=== PATIENT | female | born 1940 ===

== ENCOUNTER 2020-09-19 13:57 | Outpatient (REF) | payer MEDICARE, SELFPAY ==
--- NOTE | ~2020-09-19 | MM_ITS ---
EXAMINATION: MM SCREENING DIGITAL BREAST TOMOSYNTHESIS, BILATERAL CLINICAL INFORMATION: Screening. Asymptomatic. The lifetime risk of breast cancer based on the Tyrer-Cuzick Model is 4%. COMPARISON: Mammography: 01/18/2019, 10/10/2017, 08/19/2016 TECHNIQUE: Digital breast tomosynthesis is performed in both the craniocaudal and mediolateral oblique views along with computer-aided detection (CAD). Synthesized 2D images are generated from the tomosynthesis. Additional views are provided: Right cleavage, right MLO, left CC. FINDINGS: There are scattered areas of fibroglandular density (ACR BI-RADS breast composition Category b). There is a fibronodular parenchymal pattern similar to prior studies. There is no interval mass or architectural abnormality or dominant nodule. Again, there are scattered bilateral punctate, coarse, and vascular calcifications, including benign appearing grouped calcifications mid medial and mid outer left breast. The axilla and skin contours are unremarkable. MM/MM tomosynthesis screening BI IMPRESSION: No significant changes from prior studies. ASSESSMENT: BI-RADS 2: Benign RECOMMENDATION: Routine annual mammography screening. This patient's information was entered into a reminder system with a target due date for their next mammogram.
== END 2020-09-19 13:58 | disposition home or self-care (01) ==
LOC: HO.MAMMO 13:57
PROVIDERS: Visit Provider Internal Medicine
DX: Z12.31 Encounter for screening mammogram for malignant neoplasm of breast (principal)
CPT/HCPCS: 77063; 77067

== ENCOUNTER 2022-01-31 06:16 | Outpatient (REF) | payer MEDICARE, SELFPAY | END 2022-01-31 06:17 | disposition home or self-care (01) | LOC: HO.HOSX 06:16 | PROVIDERS: Visit Provider Physician Assistant | DX: Z13.89 Encounter for screening for other disorder (principal) ==

== ENCOUNTER 2022-03-07 07:06 | Outpatient (REF) | payer MEDICARE, SELFPAY ==
--- NOTE | ~2022-03-07 | XR_ITS ---
EXAMINATION: XR SHOULDER, RIGHT CLINICAL INFORMATION: Right shoulder pain. COMPARISON: Right shoulder radiographs dated 04/24/2013. TECHNIQUE: AP, scapular Y, and axillary views of the right shoulder. 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 Subacromial spurring. Mild glenohumeral joint space narrowing with tiny marginal osteophytes. No acute fracture. No concerning lytic or blastic osseous lesion. XR/XR shoulder RT min 2V IMPRESSION: Superior dislocation of the distal clavicle, similar when compared to the radiograph from 2013. Small subacromial spurs. Mild glenohumeral osteophyte arthritis, slightly progressed.
== END 2022-03-07 07:07 | disposition home or self-care (01) ==
LOC: HO.HOSX 07:06
PROVIDERS: Visit Provider Physician Assistant
DX: S43.101A Unspecified dislocation of right acromioclavicular joint, initial encounter (principal); M75.81 Other shoulder lesions, right shoulder
CPT/HCPCS: 20610; 73030; 99202; J1040

== ENCOUNTER → 2022-07-01 14:47 | Outpatient (BNVA) | payer MEDICARE, SELFPAY | PROVIDERS: PCP Internal Medicine; Visit Provider Urology | DX: N81.6 Rectocele (principal) | CPT/HCPCS: 51701; 99202 ==

== ENCOUNTER 2022-10-10 16:15 | Outpatient (REF) | payer OTHER, SELFPAY ==
--- NOTE | ~2022-10-10 | MM_ITS ---
EXAMINATION: MM SCREENING DIGITAL BREAST TOMOSYNTHESIS, BILATERAL CLINICAL INFORMATION: Screening. Asymptomatic. The lifetime risk of breast cancer based on the Tyrer-Cuzick Model is 3%. COMPARISON: Mammography: 09/19/2020, 01/18/2019, 10/10/2017 TECHNIQUE: Digital breast tomosynthesis is performed in both the craniocaudal and mediolateral oblique views along with computer-aided detection (CAD). Synthesized 2D images are generated from the tomosynthesis. Additional bilateral MLO views are provided. FINDINGS: There are scattered areas of fibroglandular density (ACR BI-RADS breast composition Category b). There are no significant masses, abnormal calcifications, or other abnormalities. Parenchymal pattern is similar to prior studies. There is no developing density or architectural abnormality. Scattered bilateral benign grouped coarse and some punctate and vascular calcifications are again noted. The axilla and skin contours are unremarkable. No significant changes. MM/MM tomosynthesis screening BI IMPRESSION: No mammographic evidence of malignancy. ASSESSMENT: BI-RADS 2: Benign RECOMMENDATION: Routine annual mammography screening. This patient's information was entered into a reminder system with a target due date for their next mammogram.
== END 2022-10-10 16:16 | disposition home or self-care (01) ==
LOC: HO.MAMMO 16:15
PROVIDERS: PCP Internal Medicine; Visit Provider Nurse Practitioner Family
DX: Z12.31 Encounter for screening mammogram for malignant neoplasm of breast (principal)
CPT/HCPCS: 77063; 77067

== ENCOUNTER 2022-12-19 16:33 | Outpatient (RCR) | payer OTHER, SELFPAY | END 2023-02-06 07:58 | disposition home or self-care (01) | LOC: HO.PT 16:33 | PROVIDERS: PCP Internal Medicine; Visit Provider Nurse Practitioner Family | DX: M25.511 Pain in right shoulder (principal) ==

== ENCOUNTER 2023-01-29 15:49 | Outpatient (REF) | payer OTHER, SELFPAY | END 2023-01-29 15:50 | disposition home or self-care (01) | LOC: HO.LAB 15:49 | PROVIDERS: PCP Internal Medicine; Visit Provider Urology | DX: N39.0 Urinary tract infection, site not specified (principal); N81.10 Cystocele, unspecified; N81.6 Rectocele | CPT/HCPCS: 87086; 99212 ==

== ENCOUNTER 2023-01-29 15:49 | Outpatient (AMB) | payer OTHER, SELFPAY ==
--- NOTE | 2022-12-30 12:13 | A.OFFVIS_ITS ---
Intake Intake Visit Reasons: 3m/pessary maintenance (no showed last appt) Intake Note: Patient presents today for a follow-up on 3m/pessary maintenance (no showed last appts) Meds- None Allergies to Antibiotic- No Known Allergies Blood Thinner- Aspirin & Furosemide Marketing Intelligence Manager Required: No Accompanied by: Self / Same As Patient Allergies No Known Allergies Allergy (Verified 01/29/23 15:57) Medication List - Last Reconciled 01/29/23 by Marie Pritchard MD aspirin 81 mg PO DAILY 90 days atorvastatin 80 mg PO DAILY calcium carbonate 600 mg PO BID 30 days cholecalciferol (vitamin D3) 25 mcg PO DAILY 30 days cyclobenzaprine 5 mg PO BEDTIME PRN 30 days docusate sodium 100 mg PO DAILY 90 days fluticasone propionate 50 mcg/actuation (Flonase Allergy Relief) 1 spray intranasal DAILY 30 days furosemide 20 mg PO DAILY hydrochlorothiazide 25 mg PO DAILY lansoprazole 30 mg PO DAILY lidocaine 4% 1 patch topical DAILY PRN lisinopril 40 mg PO DAILY loratadine 10 mg PO DAILY multivitamin 1 tab PO DAILY naproxen 500 mg PO BID PRN 30 days nitrofurantoin monohyd/m-cryst 100 mg (Macrobid) 100 mg PO BID sertraline 25 mg PO DAILY sertraline 100 mg PO DAILY Shower Chair As directed HPI HPI Comments History of Present Illness Details Kelly is an 82-year-old Angolan-speaking female who presents to the clinic for pessary maintenance.? 01/29/2023-- The patient is a Belarusian speaking female presented today with her aundreaer, who interpreted for her. She was last seen by me on 12/30/2022. Her daughter complaints that patient had symptoms of urinary burning. She thinks that she has urinary tract infections. Patient was unable to give voided urine. So, i obtained the urine thought catheterized specimen. I removed the pessary. Urine will be sent for culture and i will start her on macrobid 100 mg BID for 7 days, and have her follow up in 4 months. Review of charts: Last visit: 12/30/22-- The patient has a pessary in place that was placed about a year ago at a medical office, [facility]. She was last seen on 07/01/22 for vaginal prolapse. She was recommended to Urogynecology to discuss surgical management options at that time. She was also advised to follow up in 3 months if she wishes to continue with pessary management. 01/29/2023-- Plan: I removed the pessary. Urine will be sent for culture. I will start her on macrobid 100 mg BID for 7 days. Follow up in 4 months. [facility] Medical History Chest congestion Depression Essential hypertension GERD (gastroesophageal reflux disease) Hypovitaminosis D Insomnia Left knee pain Mild recurrent major depression Pure hypercholesterolemia Uterovaginal prolapse Surgical History No pertinent past surgical history Family History Father CVD (cardiovascular disease) Mother CVD (cardiovascular disease) Hypertension Sister Breast cancer Family/Other FH: mental illness Mental health disorder Social History Housing: Apartment Alcohol intake: never Patient Tobacco Use Status: Never used Tobacco e-Cigarette/Vaping Use: Never Used Second Hand Smoke Exposure: No Current occupational status: disabled Current occupation: rt hand Review of Systems Const All systems reviewed & are unremarkable except as noted in HPI and below Reports no additional complaints Eyes Reports no additional complaints ENT Reports no additional complaints Card Denies dyspnea Resp Denies cough and Denies dyspnea GI Reports no additional complaints Reports no additional complaints Musc Reports no additional complaints Skin/Breast Denies rash and Denies unusual bruising Neuro Reports no additional complaints Psych Reports no additional complaints Endo Reports no additional complaints Benny/Lymph Reports no additional complaints Aller/Immun Reports no additional complaints Assessment & Plan Assessment & Plan (1) UTI (urinary tract infection): Code(s): N39.0 - Urinary tract infection, site not specified Plan: I removed the pessary. Urine will be sent for culture. I will start her on macrobid 100 mg BID for 7 days. Follow up in 4 months. (2) Vaginal prolapse: Code(s): N81.10 - Cystocele, unspecified (3) Rectocele: Code(s): N81.6 - Rectocele Orders: Orders Urine Culture 01/29/23 N39.0 - Urinary tract infection, site not specified AMB Bladder/Catheter Procedure 01/29/23 N39.0 - Urinary tract infection, site not specified Medications: New nitrofurantoin monohyd/m-cryst 100 mg (Macrobid) must administer with a meal/food 100 mg PO BID 14 caps 0RF Patient Instructions: The patient had an opportunity to ask questions regarding treatment plan. All questions were answered. Imaging, Laboratory studies and physical exam results were discussed and reviewed in detail. No major barriers to understanding were identified. The patient expressed understanding and agreement with the above treatment plan. The patient is aware they should contact our office by phone for worsening of their current condition or the appearance of new symptoms. Compliance is encouraged with any medications and followup testing that is ordered. It is a privilege to be allowed the opportunity to participate in the urologic care of your patient. If you have any questions or concerns regarding treatment for the above conditions please do not hesitate to contact me. The office telephone contact is [phone]. This note is constructed in part using voice recognition software. While every effort has been made to ensure accuracy forklift truck operator errors may have been included. Yours sincerely, Marie Pritchard MD Quality Reporting (2019) Adult ([facility] 138/08/07/68) Smoking risk assessment performed?: Yes Patient Tobacco Use Status: Never used Tobacco Coding Level of Care Code Est Pt Level 3 (20378) Diagnoses UTI (urinary tract infection) N39.0 Vaginal prolapse N81.10 Rectocele N81.6
== END 2023-01-29 16:15 | disposition home or self-care (01) ==
LOC: HO.HUSH 15:49
PROVIDERS: PCP Internal Medicine; Visit Provider Urology
DX: N39.0 Urinary tract infection, site not specified (principal); N81.10 Cystocele, unspecified; N81.6 Rectocele
CPT/HCPCS: 99213

== ENCOUNTER 2023-03-02 18:56 | Emergency (ER) | payer OTHER, SELFPAY ==
[2023-03-02 19:10] VITALS: BP 140/86; PULSE 73; RESP 20; TEMP 36.5; O2SAT 96; BMI 32.0
--- NOTE | 2023-03-02 19:10 | ED_ITS ---
HPI - General Adult General Chief complaint: Urogenital-Female Stated complaint: removed something ? vaginal bleeding Time Seen by Provider: 03/02/23 21:21 Source: patient and family (Alyssa) Mode of arrival: ambulatory Limitations: language barrier (Bolivian speaking only, spanish interpreter/translator used) History of Present Illness HPI narrative: 82-year-old female who presents emergency department for evaluation of vaginal bleeding, frequency and dysuria. The patient states that her symptoms started 2 or 3 days prior. She denied fever, chills, chest pain, shortness of breath, abdominal pain, nausea or vomiting. The patient was worried about the vaginal bleeding and called her daughter and her daughter then brought her to the emergency department for evaluation. The daughter states the patient was wearing a pessary but at her last visit with her provider. , the patient insisted that the pessary be removed and not be reinserted. I did review the urology note from 12/30/[address] Pritchard. Patient was seen on 01/29/2023 for UTI symptoms of urinary burning, patient's pessary was removed but the patient refused to have it reinserted. Patient was treated with Macrobid 100 mg b.i.d. x7 days with a plan to follow-up in 4 months. According to the notes the patient has a vaginal prolapse and that is the reason for her pessary. Patient's urine culture from 01/29/2023 showed no growth. Related Data Home Medications Medication Instructions Recorded Confirmed sertraline 25 mg tablet 25 mg PO DAILY 05/30/20 01/29/23 sertraline 100 mg tablet 100 mg PO DAILY 03/07/22 01/29/23 Previous Rx's Medication Instructions Recorded Shower Chair #1 ea 02/21/21 cyclobenzaprine 5 mg tablet 5 mg PO BEDTIME PRN muscle spasm 03/07/21 30 days #30 tabs fluticasone propionate 50 1 spray intranasal DAILY 30 days 03/07/21 mcg/actuation nasal #16 grams spray,suspension (Flonase Allergy Relief) lidocaine 4 % topical patch 1 patch topical DAILY PRN pain #30 07/12/22 ea lansoprazole 30 mg capsule,delayed 30 mg PO DAILY #28 caps 09/04/22 release atorvastatin 80 mg tablet 80 mg PO DAILY #28 tabs 10/02/22 hydrochlorothiazide 25 mg tablet 25 mg PO DAILY #28 tabs 10/02/22 lisinopril 40 mg tablet 40 mg PO DAILY #28 tabs 10/02/22 aspirin 81 mg tablet,delayed 81 mg PO DAILY 90 days #90 tabs 10/30/22 release multivitamin 1 tab PO DAILY #28 tabs 10/30/22 cholecalciferol (vitamin D3) 25 25 mcg PO DAILY 30 days #30 tabs 12/25/22 mcg (1,000 unit) tablet furosemide 20 mg tablet 20 mg PO DAILY #28 tabs 01/22/23 loratadine 10 mg tablet 10 mg PO DAILY #90 tabs 01/22/23 nitrofurantoin 100 mg PO BID #14 caps 01/29/23 monohydrate/macrocrystals 100 mg capsule (Macrobid) calcium carbonate 600 mg calcium 600 mg PO BID 30 days #60 tabs 02/26/23 (1,500 mg) tablet docusate sodium 100 mg capsule 100 mg PO DAILY 90 days #90 caps 02/26/23 naproxen 500 mg tablet 500 mg PO BID PRN pain 30 days #60 02/26/23 tabs nitrofurantoin 100 mg PO Q12H 7 days #14 caps 03/02/23 monohydrate/macrocrystals 100 mg capsule (Macrobid) Allergies Allergy/AdvReac Type Severity Reaction Status Date / Time No Known Allergies Allergy Verified 03/02/23 19:10 Review of Systems 2 Review of Systems: Yes all other systems are reviewed and are negative [facility] Past Medical History [facility] Narrative: Social history: She lives alone but has 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 Patient denies tobacco, alcohol and drug use. Medical History Chest congestion Depression Essential hypertension GERD (gastroesophageal reflux disease) Hypovitaminosis D Insomnia Left knee pain Mild recurrent major depression Pure hypercholesterolemia Uterovaginal prolapse Surgical History No pertinent past surgical history Family History Family History Father CVD (cardiovascular disease) Mother CVD (cardiovascular disease) Hypertension Sister Breast cancer Family/Other FH: mental illness Mental health disorder Social History Social History Housing: Apartment Alcohol intake: unknown Patient Tobacco Use Status: Never used Tobacco Smoked in Last 30 Days: No e-Cigarette/Vaping Use: Never Used Second Hand Smoke Exposure: No Use of substances other than those prescribed or required for medical reasons: No Advance Directives: No Advance Directives Information Provided: Yes Current occupational status: disabled Current occupation: rt hand Physical Exam ED Vital Signs: Vital Signs - 24 hr 03/02/23 19:10 03/02/23 20:54 Temperature 97.7 F 98.5 F Pulse Rate 73 68 Respiratory Rate 20 16 Blood Pressure 140/86 H 155/71 H Pulse Oximetry 96 98 Oxygen Delivery Method Room Air Room Air BMI result Body Mass Index 32.0 Vital signs were normal except for slight elevation in blood pressure of 140/86. Exam: General: Awake, alert in no distress Head: Normocephalic, atraumatic EENT: PERRL, Lids normal, sclera normal, conjunctiva normal, nose normal , ears normal, throat without erythema or exudates Neck: Supple, no adenopathy, trachea midline and nontender Lung: breath sounds symmetric, no wheezing, rales or rhonchi Chest: symmetric movement, nontender Heart: regular rate and rhythm, normal S1, S2 no murmurs or rubs Abdomen: soft, non-tender, nondistended, normal bowel sounds Back: no vertebral tenderness, no CVAT Extremities: no deformities, moves all extremities symmetrically Skin: no rashes, no lesion, normal color and warmth Neuro: Awake, alert, oriented, normal speech, cranial nerves intact, moves all extremities symmetrically Psych: Pleasant, cooperative Course Course Course Narrative: RME: 82 yold female presents to the ED For uterine prolapse. Patient had mesh removed 2 weeks ago and starting having symptoms yesterdau. Medications Administered Discontinued Medications Generic Name Dose Route Start Last Admin Trade Name Freq PRN Reason Stop Dose Admin Nitrofurantoin Macrocrystals 100 mg 03/02/23 21:50 03/02/23 22:03 Nitrofurantoin Monohyd/M-Cryst 100 Mg Capsule PO 03/02/23 21:51 100 mg ONCE ONE Administration Medical Decision Making Medical Decision Making [facility] Narrative: 82-year-old female who presents emergency department for evaluation of 2-3 days of urinary frequency, dysuria and vaginal bleeding which occurred this evening. Patient does have a history of vaginal prolapse and usually wears a pessary but this was removed approximately 1 month prior at the patient's request, patient also had urinary symptoms at that time and was treated with Macrobid 100 mg b.i.d. x7 days-culture from the urology office visit was negative and showed no growth. Patient has had no significant systemic symptoms. Vital signs were normal. Abdominal exam revealed no tenderness. Following evaluation was ordered: CBC, CMP, urinalysis 2148: Patient's laboratory evaluation was unremarkable. Patient was not able to give us urinary sample and she refused a straight cath specimen. I will treat the patient empirically for urinary tract infection with Macrobid 100 mg twice a day for 7 days, she was given her 1st dose here in the emergency department. She was advised to follow-up with her urologist to get the pessary reinserted. Differential Diagnosis Differential Diagnoses: The differential diagnosis associated with the presentation includes Differential diagnosis includes was not limited to urinary tract infection, uterine bleeding, cervical bleeding, cervical cancer Admission/Observation Consideration of admission/observation: Escalation of care including admission/observation considered Lab Data MDM Lab Attestation statement: I reviewed the patient's lab results. My interpretation patient's laboratory evaluation is as follows: CBC was normal with a WBC of 7600 H&H of 12.4 and 37.3. Platelet count was normal 269,000. BUN was slightly elevated 20 with normal creatinine at 0.77. Bicarb elevated 31. 03/02/23 21:10 03/02/23 21:10 Labs: Lab Results 03/02/23 Range/Units 21:10 WBC 7.6 (4.8-10.8) X10*3/uL RBC 4.05 L (4.20-5.50) X10*6/uL Hgb 12.4 (12.0-16.0) g/dl Hct 37.3 (37.0-47.0) % MCV 92.1 (80.0-98.0) fL MCH 30.6 (27.0-33.0) pg MCHC 33.2 (31.0-35.0) g/dl RDW 12.2 (11.0-16.0) % Plt Count 269 (160-400) X10*3/uL MPV 8.8 L (9.4-12.3) fL Absolute Nucleated RBC 0.000 (0.0-0.012) X10*3/uL Nucleated RBC % (auto) 0.0 (0.0-0.2) /100WBC Sodium 141 (135-145) mmol/L Potassium 3.8 (3.3-5.1) mmol/L Chloride 102 (96-108) mmol/L Carbon Dioxide 31 H (22-29) mmol/L Anion Gap 12 (12-20) BUN 20 H (9-16) mg/dL Creatinine 0.77 (0.5-1.4) mg/dL Estim Creat Clear Calc 44.4 Estimated GFR > 60 Random Glucose 110 (60-115) mg/dL Calcium 9.5 (8.4-10.2) mg/dL Total Bilirubin 0.4 (0.0-1.0) mg/dL AST 16 (5-31) U/L ALT 11 (0-31) U/L Alkaline Phosphatase 60 (39-117) U/L Total Protein 6.8 (6.5-8.0) g/dL Albumin 3.8 (3.5-5.0) g/dL Discharge Plan Discharge Clinical Impression: Urinary tract infection Patient Disposition: Home, Self-Care Instructions: Urinary Tract Infection in Older Adults (ED) Additional Instructions: Take Macrobid (nitrofurantoin) 100 mg pills, 1 pill twice a day for 7 days Follow-up with your urologist, Dr. Pritchard for reinsertion of the pessary and to follow-up on your symptoms of a urinary tract infection Follow-up with your doctor in 2 days. Please return to the emergency department if your symptoms get worse or if you develop any symptoms that are concerning to you. Prescriptions: New nitrofurantoin monohyd/m-cryst [Macrobid] 100 mg capsule 100 mg PO Q12H 7 Days Qty: 14 0RF Rx Instructions: must administer with a meal/food No Action (DME) Shower Chair Misc See Rx Instructions .Route Qty: 1 0RF Rx Instructions: As directed cyclobenzaprine 5 mg tablet 5 mg PO BEDTIME PRN (Reason: muscle spasm) 30 Days Qty: 30 0RF fluticasone propionate [Flonase Allergy Relief] 50 mcg/actuation spray,suspension 1 spray intranasal DAILY 30 Days Qty: 16 0RF Rx Instructions: administer into each nostril lansoprazole 30 mg capsule,delayed release(DR/EC) 30 mg PO DAILY Qty: 28 6RF lisinopril 40 mg tablet 40 mg PO DAILY Qty: 28 6RF atorvastatin 80 mg tablet 80 mg PO DAILY Qty: 28 6RF hydrochlorothiazide 25 mg tablet 25 mg PO DAILY Qty: 28 6RF aspirin 81 mg tablet,delayed release (DR/EC) 81 mg PO DAILY 90 Days Qty: 90 1RF multivitamin Tablet 1 tab PO DAILY Qty: 28 6RF cholecalciferol (vitamin D3) 25 mcg (1,000 unit) tablet 25 mcg PO DAILY 30 Days Qty: 30 11RF loratadine 10 mg tablet 10 mg PO DAILY Qty: 90 3RF furosemide 20 mg tablet 20 mg PO DAILY Qty: 28 6RF calcium carbonate 600 mg calcium (1,500 mg) tablet 600 mg PO BID 30 Days Qty: 60 11RF docusate sodium 100 mg capsule 100 mg PO DAILY 90 Days Qty: 90 1RF naproxen 500 mg tablet 500 mg PO BID PRN (Reason: pain) 30 Days Qty: 60 0RF sertraline 25 mg tablet 25 mg PO DAILY lidocaine 4 % adhesive patch,medicated 1 patch topical DAILY PRN (Reason: pain) Qty: 30 1RF sertraline 100 mg tablet 100 mg PO DAILY nitrofurantoin monohyd/m-cryst [Macrobid] 100 mg capsule 100 mg PO BID Qty: 14 0RF Rx Instructions: must administer with a meal/food Interventions: ED Discharge Assessment Last Done: 03/02/23 22:06 Discharge Date/Time: 03/02/23 22:18
[2023-03-02 20:54] VITALS: BP 155/71; PULSE 68; RESP 16; TEMP 36.9; O2SAT 98
[2023-03-02 21:15] LABS: Hematocrit 37.3 % (37.0-47.0); Hemoglobin 12.4 g/dl (12.0-16.0); Mean Corpuscular HGB Conc 33.2 g/dl (31.0-35.0); Mean Corpuscular Hemoglobin 30.6 pg (27.0-33.0); Mean Corpuscular Volume 92.1 fL (80.0-98.0); Mean Platelet Volume 8.8 fL (9.4-12.3); Platelet Count 269 X10*3/uL (160-400); Red Blood Count 4.05 X10*6/uL (4.20-5.50); Red Cell Distribution Width 12.2 % (11.0-16.0); White Blood Count 7.6 X10*3/uL (4.8-10.8)
--- NOTE | 2023-03-02 21:19 | PC.NURSE ---
assumed care of pt, pt alert/o x3 . bangladeshi speaking daughter at bedside interpreting, pt has mid abd pain and brown vaginal blood noted as of today. IV placed 20 RAC, labs drawn from site. call lacy in reach, bed at lowest postion
[2023-03-02 21:28] LABS: Alanine Aminotransferase 11 U/L (0-31); Albumin Level 3.8 g/dL (3.5-5.0); Alkaline Phosphatase 60 U/L (39-117); Anion Gap 12 (12-20); Aspartate Amino Transferase 16 U/L (5-31); Bilirubin Total 0.4 mg/dL (0.0-1.0); Blood Urea Nitrogen 20 mg/dL (9-16); Calcium 9.5 mg/dL (8.4-10.2); Carbon Dioxide 31 mmol/L (22-29); Chloride 102 mmol/L (96-108); Creatinine Clr Calc Pharmacy 44.4; Estimated Glomerular Filt Rate > 60; Glucose Random 110 mg/dL (60-115); Potassium 3.8 mmol/L (3.3-5.1); Sodium 141 mmol/L (135-145); Total Protein 6.8 g/dL (6.5-8.0)
[2023-03-02] MEDS: Nitrofurantoin Monohyd/M-Cryst 100 MG CAPSULE PO (22:03)
== END 2023-03-02 22:18 | disposition home or self-care (01) ==
PROVIDERS: Emergency Provider Emergency Medicine Emergency Medical Services
DX: N39.0 Urinary tract infection, site not specified (principal); R35.0 Frequency of micturition; R30.0 Dysuria; Z79.899 Other long term (current) drug therapy
CPT/HCPCS: 36415; 80053; 85027; 99283; 99284

== ENCOUNTER 2023-06-18 15:44 | Outpatient (AMB) | payer OTHER, SELFPAY ==
--- NOTE | 2023-06-18 15:50 | MHC.OFFVIS ---
Intake Intake Visit Reasons: ER follow up/vaginal bleeding Intake Note: Patient presents today for a follow-up on Vaginal Bleeding, patient went to [facility] ER: Meds- None Allergies to Antibiotic- No Known Allergies Blood Thinner- Aspirin & Furosemide Ux Design Manager Required: No Accompanied by: Self / Same As Patient Allergies No Known Allergies Allergy (Verified 03/02/23 19:10) Medication List - Last Reconciled 06/18/23 by Marie Pritchard MD aspirin 81 mg PO DAILY 90 days atorvastatin 80 mg PO DAILY calcium carbonate 600 mg PO BID 30 days cholecalciferol (vitamin D3) 25 mcg PO DAILY 30 days cyclobenzaprine 5 mg PO BEDTIME PRN 30 days docusate sodium 100 mg PO DAILY 90 days fluconazole 150 mg PO DAILY fluticasone propionate 50 mcg/actuation (Flonase Allergy Relief) 1 spray intranasal DAILY 30 days furosemide 20 mg PO DAILY hydrochlorothiazide 25 mg PO DAILY lansoprazole 30 mg PO DAILY lidocaine 4% 1 patch topical DAILY PRN lisinopril 40 mg PO DAILY loratadine 10 mg PO DAILY multivitamin 1 tab PO DAILY naproxen 500 mg PO BID PRN 30 days nitrofurantoin monohyd/m-cryst 100 mg (Macrobid) 100 mg PO Q12H 7 days nitrofurantoin monohyd/m-cryst 100 mg (Macrobid) 100 mg PO BID sertraline 25 mg PO DAILY sertraline 100 mg PO DAILY Shower Chair As directed HPI HPI Comments History of Present Illness Details Kelly is an 82-year-old Czech-speaking female who presents to the clinic for vaginal bleeding. She presents with her daughter today who states the patient went to [facility] ED 2 nights ago and they told her to make an appointment. She c/'s of vaginal itching also. Her daughter states that since she was here last in December 2022, at which time she wanted the pessary removed; she went to [facility] and had another pessary placed because she had truouble urinating due to the vaginal bulge. She states she prefers this office kam came back to be seen. She states the vaginal bleeding is off and on. She also stated the pessary placed by [facility] had fallen out bur her mother was able to replace it. Exam: Pessary removed (ring with support) - no vaginal bleeding noted, white creamy discharge. Pessary fitting - New size 6 ring w/o support placed I have contacted [facility] ED 06/17/23 and received fax'd copy of ED records and have reviewed them. Review of chart: 01/29/2023-- The patient is a Romanian speaking female presented today with her duaghter, who interpreted for her. She was last seen by me on 12/30/2022. Her daughter complaints that patient had symptoms of urinary burning. She thinks that she has urinary tract infections. Patient was unable to give voided urine. So, i obtained the urine thought catheterized specimen. I removed the pessary. Urine will be sent for culture and i will start her on macrobid 100 mg BID for 7 days, and have her follow up in 4 months. Last visit: 12/30/22-- The patient has a pessary in place that was placed about a year ago at a medical office, [facility]. She was last seen on 07/01/22 for vaginal prolapse. She was recommended to Urogynecology to discuss surgical management options at that time. She was also advised to follow up in 3 months if she wishes to continue with pessary anagement. 06/18/23-- UA-- leuk neg, blood neg 06/18/23-- Plan: c/o's vaginal bleeding, pt states she has not had a hysterectomy- DRY CHAIN OFFBEARER referral Size # 6 Ring w/o support pessary inserted. Catheterized urine - Negative Vaginal pruitis, Diflucan 150 mg Follow up in [address] [facility] Medical History Chest congestion Left knee pain Mild recurrent major depression Uterovaginal prolapse Essential hypertension Hypovitaminosis D Insomnia Depression Pure hypercholesterolemia GERD (gastroesophageal reflux disease) Surgical History No pertinent past surgical history Family History Father CVD (cardiovascular disease) Mother CVD (cardiovascular disease) Hypertension Sister Breast cancer Family/Other FH: mental illness Mental health disorder Social History Housing: Apartment Alcohol intake: unknown Patient Tobacco Use Status: Never used Tobacco e-Cigarette/Vaping Use: Never Used Second Hand Smoke Exposure: No Current occupational status: disabled Current occupation: rt hand Review of Systems Const All systems reviewed & are unremarkable except as noted in HPI and below Reports no additional complaints Eyes Reports no additional complaints ENT Reports no additional complaints Card Denies dyspnea Resp Denies cough and Denies dyspnea GI Reports no additional complaints Reports no additional complaints Musc Reports no additional complaints Skin/Breast Denies rash and Denies unusual bruising Neuro Reports no additional complaints Psych Reports no additional complaints Endo Reports no additional complaints Benny/Lymph Reports no additional complaints Aller/Immun Reports no additional complaints Physical Exam Const General: cooperative, healthy appearing and no acute distress Orientation/consciousness: patient oriented x3 HEENT Head: Yes normal to inspection, Yes normocephalic and Yes atraumatic Eyes Conjunctivae: conjunctivae normal Neck Neck: Yes normal visual inspection and Yes trachea midline Chest Chest palpation & inspection: normal inspection of the chest Resp Effort & Inspection: normal respiratory effort Cardio Rate: regular rate GI Inspection: Yes normal to inspection Palpation (GI): Soft to palpation Other: grade 4 rectocele External Female Exam: normal external appearance Speculum Exam - Vagina: vagina atrophic Skin General skin exam: no rashes or lesions noted Neuro General: patient oriented x3 Extrem General: No edema Psych Appearance: grossly normal Office Procedures Bladder/Catheter Procedure Details: Under sterile technique a 14 Greek catheter was passed transurethrally, 90 mL urine drained [id number] Bladder Catheter Procedure code (CPT) selection complete Assessment & Plan Assessment & Plan (1) Vaginal prolapse: Code(s): N81.10 - Cystocele, unspecified (2) Vaginal bleeding: Code(s): N93.9 - Abnormal uterine and vaginal bleeding, unspecified (3) Vaginitis: Code(s): N76.0 - Acute vaginitis (4) Rectocele: Code(s): N81.6 - Rectocele Plan c/o's vaginal bleeding, pt states she has not had a hysterectomy- DRY CHAIN OFFBEARER referral Size # 6 Ring w/o support pessary inserted. Catheterized urine - Negative Vaginal pruitis, Diflucan 150 mg Follow up in 10 weeks pessary eval. Orders: Orders AMB Bladder/Catheter Procedure Today N81.10 - Cystocele, unspecified Referrals MANAGER BUSINESS BANKING Referral N93.9 - Abnormal uterine and vaginal bleeding, unspecified Medications: New fluconazole 150 mg PO DAILY 2 tabs 0RF repeat dose in 2 days Patient Instructions: The patient had an opportunity to ask questions regarding treatment plan. All questions were answered. Laboratory studies and physical exam results were discussed and reviewed in detail. No major barriers to understanding were identified. The patient expressed understanding and agreement with the above treatment plan. The patient is aware they should contact our office by phone for worsening of their current condition or the appearance of new symptoms. Compliance is encouraged with any medications and followup testing that is ordered. It is a privilege to be allowed the opportunity to participate in the urologic care of your patient. If you have any questions or concerns regarding treatment for the above conditions please do not hesitate to contact me. The office telephone contact is [phone]. This note is constructed in part using voice recognition software. While every effort has been made to ensure accuracy senior copywriter errors may have been included. Yours sincerely, Marie Pritchard MD Quality Reporting (2019) Adult ([facility] 138/08/07/68) Smoking risk assessment performed?: Yes Patient Tobacco Use Status: Never used Tobacco Coding Level of Care Code Est Pt Level 4 (40895) Diagnoses Vaginal prolapse N81.10 Vaginal bleeding N93.9 Vaginitis N76.0 Rectocele N81.6 CPT Codes Bladder/Catheter Procedure - CPT: 42121-Hqngoc Bladder Catheter ([id number])
== END 2023-06-18 16:22 | disposition home or self-care (01) ==
PROVIDERS: PCP Internal Medicine; Visit Provider Urology
DX: N81.10 Cystocele, unspecified (principal); N93.9 Abnormal uterine and vaginal bleeding, unspecified; N76.0 Acute vaginitis; N81.6 Rectocele
CPT/HCPCS: 57160; 99214

== ENCOUNTER → 2023-06-18 15:44 | Outpatient (BNVA) | payer OTHER, SELFPAY | PROVIDERS: PCP Internal Medicine; Visit Provider Urology | DX: N81.10 Cystocele, unspecified (principal); N93.9 Abnormal uterine and vaginal bleeding, unspecified; N76.0 Acute vaginitis; N81.6 Rectocele | CPT/HCPCS: 51701; 57160; 99212 ==

== ENCOUNTER 2023-07-07 13:37 | Outpatient (AMB) | payer OTHER, SELFPAY ==
--- NOTE | 2023-07-07 13:58 | A.OFFVIS_ITS ---
Intake Intake Visit Reasons: Having Issues with the Pessary Intake Note: Patient presents today, is having issues with her Pessary: Meds- None Allergies to Antibiotic- No Known Allergies Blood Thinner- Aspirin Research Physician Required: No Accompanied by: Daughter Allergies No Known Allergies Allergy (Verified 07/07/23 13:59) HPI HPI Comments History of Present Illness Details 07/07/23--Kelly is an 82-year-old Spani -speaking female who was last seen on 06/18/23 for vaginal bleeding. She presents with her daughter today with complaints of the pessary falling out again. Certified interpreter present. The pessary was replaced today. Review of chart: 06/18/23-- Kelly is an 82-year-old Spani -speaking female who presents to the clinic for vaginal bleeding. She presents with her daughter today who states the patient went to [facility] ED 2 nights ago and they told her to make an appointment. She c/'s of vaginal itching also. Exam: Pessary removed (ring with support) - no vaginal bleeding noted, white creamy discharge. Pessary fitting - New size 6 ring w/o support placed Plan:c/o's vaginal bleeding, pt states she has not had a hysterectomy- AUTOMATIC MACHINE ATTENDANT referral, Size # 6 Ring w/o support pessary inserted. Catheterized urine - Negative; Vaginal pruitis, Diflucan 150 mg. Follow up in 10 weeks pessary eval. 06/18/23-- UA-- leuk neg, blood neg 01/29/2023-- The patient is a Kiswahili speaking female presented today with her shabana, who interpreted for her. She was last seen by me on 12/30/2022. Her daughter complaints that patient had symptoms of urinary burning. She thinks that she has urinary tract infections. Patient was unable to give voided urine. So, i obtained the urine thought catheterized specimen. I removed the pessary. Urine will be sent for culture and i will start her on macrobid 100 mg BID for 7 days, and have her follow up in 4 months. 12/30/22-- The patient has a pessary in place that was placed about a year ago at a medical office, [facility]. She was last seen on 07/01/22 for vaginal prolapse. She was recommended to Urogynecology to discuss surgical management options at that time. She was also advised to follow up in 3 months if she wishes to continue with pessary management. 07/07/23-- Plan: Follow up in 10 weeks pessary eval. [facility] Medical History Chest congestion Left knee pain Mild recurrent major depression Uterovaginal prolapse Essential hypertension Hypovitaminosis D Insomnia Depression Pure hypercholesterolemia GERD (gastroesophageal reflux disease) Surgical History No pertinent past surgical history Family History Father CVD (cardiovascular disease) Mother CVD (cardiovascular disease) Hypertension Sister Breast cancer Family/Other FH: mental illness Mental health disorder Social History Housing: Apartment Alcohol intake: unknown Patient Tobacco Use Status: Never used Tobacco e-Cigarette/Vaping Use: Never Used Second Hand Smoke Exposure: No Current occupational status: disabled Current occupation: rt hand Review of Systems Const All systems reviewed & are unremarkable except as noted in HPI and below Reports no additional complaints Eyes Reports no additional complaints ENT Reports no additional complaints Card Denies dyspnea Resp Denies cough and Denies dyspnea GI Reports no additional complaints Reports no additional complaints Musc Reports no additional complaints Skin/Breast Denies rash and Denies unusual bruising Neuro Reports no additional complaints Psych Reports no additional complaints Endo Reports no additional complaints Benny/Lymph Reports no additional complaints Aller/Immun Reports no additional complaints Assessment & Plan Assessment & Plan (1) Vaginal prolapse: Code(s): N81.10 - Cystocele, unspecified (2) Rectocele: Code(s): N81.6 - Rectocele Plan Follow up in 10 weeks pessary eval. Quality Reporting (2019) Adult ([facility] 138/08/07/68) Smoking risk assessment performed?: Yes Patient Tobacco Use Status: Never used Tobacco Coding Level of Care Code Est Pt Level 3 (64250) Diagnoses Vaginal prolapse N81.10 Rectocele N81.6
== END 2023-07-07 15:01 | disposition home or self-care (01) ==
PROVIDERS: PCP Internal Medicine; Visit Provider Urology
DX: N81.10 Cystocele, unspecified (principal); N81.6 Rectocele
CPT/HCPCS: 99213

== ENCOUNTER → 2023-07-07 13:37 | Outpatient (BNVA) | payer OTHER, SELFPAY | PROVIDERS: PCP Internal Medicine; Visit Provider Urology | DX: N81.10 Cystocele, unspecified (principal); N81.6 Rectocele | CPT/HCPCS: 99212 ==

== ENCOUNTER 2023-10-08 15:19 | Outpatient (AMB) | payer OTHER, SELFPAY ==
--- NOTE | 2023-10-08 15:21 | A.OFFVIS_ITS ---
Intake Visit Reasons: 10w pessary maintenance Intake Note: Patient presents today, for a 10 week Pessary Maintenance: Meds- None Allergies to Antibiotic- No Known Allergies Blood Thinner- Aspirin Eye Dropper Assembler Required: No Accompanied by: Daughter Allergies No Known Allergies Allergy (Verified 07/07/23 13:59) HPI Comments Details: 10/08/23-- pessary changed, cleaned, replaced. patient complains of vaginal itching. Diflucan 150 mg x 2 doses. catheterized PVR 70 mL. FU in 3 months Review of chart: 07/07/23--Kelly is an 82-year-old Korean-speaking female who was last seen on 06/18/23 for vaginal bleeding. She presents with her daughter today with complaints of the pessary falling out again. Certified filing or registry clerk present. The pessary was replaced today. 06/18/23-- Kelly is an 82-year-old Korean-speaking female who presents to the clinic for vaginal bleeding. She presents with her daughter today who states the patient went to [facility] ED 2 nights ago and they told her to make an appointment. She c/'s of vaginal itching also. Exam: Pessary removed (ring with support) - no vaginal bleeding noted, white creamy discharge. Pessary fitting - New size 6 ring w/o support placed Plan:c/o's vaginal bleeding, pt states she has not had a hysterectomy- EXTRUDING PRESS OPERATOR referral, Size # 6 Ring w/o support pessary inserted. Catheterized urine - Negative; Vaginal pruitis, Diflucan 150 mg. Follow up in 10 weeks pessary eval. 06/18/23-- UA-- leuk neg, blood neg 01/29/2023-- The patient is a Filipino speaking female presented today with her shabana, who interpreted for her. She was last seen by me on 12/30/2022. Her daughter complaints that patient had symptoms of urinary burning. She thinks that she has urinary tract infections. Patient was unable to give voided urine. So, i obtained the urine thought catheterized specimen. I removed the pessary. Urine will be sent for culture and i will start her on macrobid 100 mg BID for 7 days, and have her follow up in 4 months. 12/30/22-- The patient has a pessary in place that was placed about a year ago at a medical office, [facility]. She was last seen on 07/01/22 for vaginal prolapse. She was recommended to Urogynecology to discuss surgical management options at that time. She was also advised to follow up in 3 months if she wishes to continue with pessary management. [facility] Medical History Chest congestion Left knee pain Mild recurrent major depression Uterovaginal prolapse Essential hypertension Hypovitaminosis D Insomnia Depression Pure hypercholesterolemia GERD (gastroesophageal reflux disease) Surgical History No pertinent past surgical history Family History Father CVD (cardiovascular disease) Mother CVD (cardiovascular disease) Hypertension Sister Breast cancer Family/Other FH: mental illness Mental health disorder Social History Housing: Apartment Alcohol intake: unknown Patient Tobacco Use Status: Never used Tobacco e-Cigarette/Vaping Use: Never Used Second Hand Smoke Exposure: No Current occupational status: disabled Current occupation: rt hand Review of Systems Const All systems reviewed & are unremarkable except as noted in HPI and below Reports no additional complaints Eyes Reports no additional complaints ENT Reports no additional complaints Card Reports no additional complaints Resp Reports no additional complaints GI Reports no additional complaints Reports as per HPI Musc Reports no additional complaints Skin/Breast Reports system reviewed and no additional complaints, except as documented Neuro Reports no additional complaints Psych Reports no additional complaints Endo Reports no additional complaints Benny/Lymph Reports no additional complaints Aller/Immun Reports no additional complaints Results AMB Urinalysis, Automated UA Leukoctes 0 Melinda/uL Last Edit by BETTE Perez on 10/08/23 15:43 UA Nitrite Negative Last Edit by BETTE Perez on 10/08/23 15:43 UA Urobilinogen 0.2 mg/dL Last Edit by Naynaa Alexis, RMA on 10/08/23 15:4 3 UA Protein 0 mg/dL Last Edit by Arlenmorales Alexis, RMA on 10/08/23 15:43 UA pH 6.0 Last Edit by Arlenmorales Alexis, RMA on 10/08/23 15:43 UA Blood 0 Jake/uL Last Edit by Nayana Alexis, RMA on 10/08/23 15:43 UA Specific Destrehan 1.015 Last Edit by Nayana Alexis, RMA on 10/08/23 15: 43 UA Ketone Negative Last Edit by Nayana Alexis, RMA on 10/08/23 15:43 UA Bilirubin 0 mg/dL Last Edit by Nayana Alexis, RMA on 10/08/23 15:43 UA Glucose 0 mg/dL Last Edit by Nayana Alexis, RMA on 10/08/23 15:43 Quality Reporting (2019) Adult ([facility] 138/08/07/68) Smoking risk assessment performed?: Yes Patient Tobacco Use Status: Never used Tobacco Results Reviewed Results Reviewed: Laboratory Last Values Urine pH (Auto) 6.0 10/08/23 15:42 Specific [place]re[place] (Auto) 1.015 10/08/23 15:42 Urine Protein (Auto) 0 mg/dL 10/08/23 15:42 Glucose (UA)(Auto) 0 mg/dL 10/08/23 15:42 Urine Ketones (Auto) Negative 10/08/23 15:42 Urine Blood (Auto) 0 Jake/uL 10/08/23 15:42 Urine Nitrite (Auto) Negative 10/08/23 15:42 Urine Bilirubin (Auto) 0 mg/dL 10/08/23 15:42 Urine Urobilinogen (Auto) 0.2 mg/dL 10/08/23 15:42 Leukocyte Esterase (Auto) 0 Melinda/uL 10/08/23 15:42 Assessment & Plan Assessment & Plan (1) Vaginal prolapse: Code(s): N81.10 - Cystocele, unspecified Category: Medical (2) Rectocele: Code(s): N81.6 - Rectocele Category: Medical (3) Vaginitis: Code(s): N76.0 - Acute vaginitis Category: Medical Plan Follow up in 3- 4 months pessary maintenance. difucan 150 mg x 2 doses Orders: Orders AMB Urinalysis Automated 10/08/23 Z13.9 - Encounter for screening, unspecified Medications: New fluconazole 150 mg orally take first dose today repeat dose in 3 days; 2 tabs 0RF Patient Instructions: The patient had an opportunity to ask questions regarding treatment plan. The patient expressed understanding and agreement with the above treatment plan. The patient is aware they should contact our office by phone for worsening of their current condition or the appearance of new symptoms. Compliance is encouraged with any medications and followup testing that is ordered. It is a privilege to be allowed the opportunity to participate in the urologic care of your patient. If you have any questions or concerns regarding treatment for the above conditions please do not hesitate to contact me. The office telephone contact is [phone]. This note is constructed in part using voice recognition software. While every effort has been made to ensure accuracy head usher errors may have been included. Yours sincerely, Marie Pritchard MD Coding Level of Care Code Est Pt Level 3 (08001) Diagnoses Vaginal prolapse N81.10 Rectocele N81.6 Vaginitis N76.0
== END 2023-10-08 15:54 | disposition home or self-care (01) ==
PROVIDERS: PCP Internal Medicine; Visit Provider Urology
DX: N81.10 Cystocele, unspecified (principal); N81.6 Rectocele; N76.0 Acute vaginitis
CPT/HCPCS: 99213

== ENCOUNTER → 2023-10-08 15:19 | Outpatient (BNVA) | payer OTHER, SELFPAY | PROVIDERS: PCP Internal Medicine; Visit Provider Urology | DX: N81.10 Cystocele, unspecified (principal); N81.6 Rectocele; N76.0 Acute vaginitis | CPT/HCPCS: 81003; 99212 ==

== ENCOUNTER → 2024-01-01 16:00 | Outpatient (BNV) | payer OTHER, SELFPAY | PROVIDERS: PCP Internal Medicine; Visit Provider Radiology Diagnostic Radiology | DX: Z12.31 Encounter for screening mammogram for malignant neoplasm of breast (principal) | CPT/HCPCS: 77063; 77067 ==

== ENCOUNTER 2024-01-01 16:09 | Outpatient (REF) | payer OTHER, SELFPAY ==
--- NOTE | ~2024-01-01 | MM_ITS ---
EXAMINATION: MM SCREENING DIGITAL BREAST TOMOSYNTHESIS, BILATERAL CLINICAL INFORMATION: Screening. Asymptomatic. COMPARISON: Mammography: This study is compared with prior exams dating back to 2018. TECHNIQUE: Digital breast tomosynthesis is performed in both the craniocaudal and mediolateral oblique views along with computer-aided detection (CAD). Synthesized 2D images are generated from the tomosynthesis. FINDINGS: There are scattered areas of fibroglandular density (ACR BI-RADS breast composition Category b). There are no significant masses, abnormal calcifications, or other abnormalities. Bilateral benign calcifications are present. MM/MM tomosynthesis screening BI IMPRESSION: No mammographic evidence of malignancy. ASSESSMENT: BI-RADS BI-RADS 2 - Benign Findings RECOMMENDATION: Routine annual mammography screening. 1 year F/U This examination should not preclude the clinical evaluation of a suspicious palpable abnormality. This patient's information was entered into a reminder system with a target due date for their next mammogram.
== END 2024-01-01 16:10 | disposition home or self-care (01) ==
LOC: HO.MAMMO 16:09
PROVIDERS: PCP Internal Medicine; Visit Provider Internal Medicine
DX: Z12.31 Encounter for screening mammogram for malignant neoplasm of breast (principal)
CPT/HCPCS: 77063; 77067

== ENCOUNTER 2024-02-19 12:01 | Emergency (ER) | payer OTHER, SELFPAY ==
--- NOTE | ~2024-02-19 | XR_ITS ---
EXAMINATION: XR HIP, LEFT CLINICAL INFORMATION: Pain status post fall COMPARISON: None available. TECHNIQUE: Two views of the left hip. PA view of the pelvis. FINDINGS: No fracture. Alignment is anatomic. Mild hip joint space narrowing with subchondral sclerosis. Soft tissues are unremarkable. XR/XR hip LT w PEL1V IMPRESSION: Mild degenerative disease of the left hip. Electronically signed by: Jena Camp MD 02/19/2024 02:44 PM EDT
--- NOTE | ~2024-02-19 | CT_ITS ---
EXAMINATION: CT ABDOMEN AND PELVIS WITH CONTRAST CLINICAL INFORMATION: Lump. Question hernia versus hematoma status post fall COMPARISON: None available. TECHNIQUE: Multidetector volumetric images were obtained from the superior aspect of the liver through the pubic symphysis following administration 85 mL of Omnipaque 350 intravenous contrast. Sagittal and coronal reformatted images were obtained on the technologist's workstation. Oral contrast: No This CT examination was performed using dose optimization techniques as appropriate, variously including the following: *Automated exposure control *Adjustment of mA and/or kV according to patient size (this includes techniques or standardized protocols for targeted exams where dose is matched to indication/reason for exam; i.e. extremities or head) *Use of iterative reconstruction technique DLP: 8:30 mGy-cm FINDINGS: LUNG BASES: The visualized lung bases are unremarkable. LIVER, GALLBLADDER, AND BILIARY TREE: The liver is normal in size, shape, and attenuation. No focal hepatic lesion or biliary ductal dilatation is present. Gallbladder is filled with stones which are laminated. No acute inflammatory changes. PANCREAS: Unremarkable. SPLEEN: Unremarkable. ADRENAL GLANDS: Unremarkable. KIDNEYS AND URETERS: Left kidney known. Motion degradation limits assessment of the right kidney. There is cortical thinning and calcification likely representing sequelae of old infection. No hydronephrosis grossly. No perinephric collection. BLADDER: Unremarkable. GASTROINTESTINAL TRACT: Severe diverticulosis especially distal colon. No acute inflammatory changes. Moderate amount stool retention. No small bowel pathology. Moderate-sized axial type hiatus hernia. Pessary in place. No free fluid. ABDOMINAL WALL: No significant hernia is appreciated. LYMPH NODES: Normal. VASCULAR: Unremarkable. PELVIC VISCERA: Unremarkable. OSSEOUS STRUCTURES: No hip fracture. There is a large ovoid lesion within this extends fat lateral to the left hip measuring up to 10.6 cm. It measures -15 Hounsfield units indicating an element of fat necrosis. No additional findings. CT/CT abdomen pelvis w IV con IMPRESSION: 1. No evidence for any inguinal hernia. 2. Large fat-containing lesion left hip as above. 3. Cholelithiasis without acute inflammatory changes. 4. Chronic findings as above. Fleischner guidelines were followed. Electronically signed by: Driss Sweet MD 02/19/2024 06:23 PM EDT
[2024-02-19 12:21] VITALS: BP 172/58; PULSE 80; RESP 20; TEMP 36; O2SAT 98; BMI 28.9
--- NOTE | 2024-02-19 12:24 | ED_ITS ---
HPI - Extremity Problem General Chief complaint: Fall Stated complaint: fall-l hip bump Time Seen by Provider: 02/19/24 13:48 Source: patient Mode of arrival: ambulatory Limitations: no limitations History of Present Illness ED Provider: Nishi French HPI Narrative: 83-year-old female presents with left-sided hip pain and lump to the left hip status post fall 2 weeks ago. Patient reports she fell while ambulating, mechanical fall fell onto her left side, she had a bruise to her left hip for about a week or so, the bruises gone away however she now has a large lump on the lateral aspect of her left hip. When she fell there was no head strike or loss of consciousness. She is not on blood thinners. She reports the lump does not hurt however has grown in size. She denies weakness, fevers, chills, chest pain, shortness of breath, nausea, vomiting, numbness, tingling, difficulties with ambulation. She ambulates with a cane at baseline and has been using this cane like usual. Related Data Home Medications ?Medication ?Instructions ?Recorded ?Confirmed sertraline 25 mg tablet 25 mg PO DAILY 05/30/20 06/18/23 sertraline 100 mg tablet 100 mg PO DAILY 03/07/22 06/18/23 Previous Rx's ?Medication ?Instructions ?Recorded Shower Chair #1 ea 02/21/21 cyclobenzaprine 5 mg tablet 5 mg PO BEDTIME PRN muscle spasm 03/07/21 30 days #30 tabs fluticasone propionate 50 1 spray intranasal DAILY 30 days 03/07/21 mcg/actuation nasal #16 grams spray,suspension (Flonase Allergy Relief) lidocaine 4 % topical patch 1 patch topical DAILY PRN pain #30 07/12/22 ea cholecalciferol (vitamin D3) 25 25 mcg PO DAILY 30 days #30 tabs 12/25/22 mcg (1,000 unit) tablet nitrofurantoin 100 mg PO BID #14 caps 01/29/23 monohydrate/macrocrystals 100 mg capsule (Macrobid) calcium carbonate 600 mg PO BID 30 days #60 tabs 02/26/23 nitrofurantoin 100 mg PO Q12H 7 days #14 caps 03/02/23 monohydrate/macrocrystals 100 mg capsule (Macrobid) fluconazole 150 mg tablet 150 mg PO DAILY repeat dose in 2 06/18/23 days #2 tabs fluconazole 150 mg tablet 150 mg PO .COMPLEX #2 tabs 10/08/23 atorvastatin 80 mg tablet 80 mg PO DAILY #28 tabs 11/26/23 hydrochlorothiazide 25 mg tablet 25 mg PO DAILY #28 tabs 11/26/23 lisinopril 40 mg tablet 40 mg PO DAILY #28 tabs 11/26/23 aspirin 81 mg tablet,delayed 81 mg PO DAILY 90 days #90 tabs 12/24/23 release loratadine 10 mg tablet 10 mg PO DAILY #90 tabs 12/24/23 docusate sodium 100 mg capsule 100 mg PO DAILY 90 days #90 caps 01/22/24 furosemide 20 mg tablet 20 mg PO DAILY #28 tabs 02/18/24 lansoprazole 30 mg capsule,delayed 30 mg PO DAILY #28 caps 02/18/24 release multivitamin 1 tab PO DAILY #28 tabs 02/18/24 naproxen 500 mg tablet 500 mg PO BID PRN pain 30 days #60 02/18/24 tabs Allergies Allergy/AdvReac Type Severity Reaction Status Date / Time No Known Allergies Allergy Verified 02/19/24 12:24 Review of Systems 2 Review of Systems: Yes all other systems are reviewed and are negative PMFSH Past Medical History Attestation statement: The following information was validated with the patient. Source: old records reviewed and nursing notes reviewed Medical History Chest congestion Left knee pain Mild recurrent major depression Uterovaginal prolapse Essential hypertension Hypovitaminosis D Insomnia Depression Pure hypercholesterolemia GERD (gastroesophageal reflux disease) Surgical History No pertinent past surgical history Family History Family History Father CVD (cardiovascular disease) Mother CVD (cardiovascular disease) Hypertension Sister Breast cancer Family/Other FH: mental illness Mental health disorder Social History Social History Housing: Apartment Alcohol intake: unknown Patient Tobacco Use Status: Never used Tobacco e-Cigarette/Vaping Use: Never Used Second Hand Smoke Exposure: No Advance Directives: No Advance Directives Information Provided: Yes Do you have a plan to hurt others: No Plan Current occupational status: disabled Current occupation: rt hand Physical Exam 2 Vital Signs: Vital Signs: Last Vital Signs Temp 96.8 F 02/19/24 12:21 Pulse 80 02/19/24 12:21 Resp 20 02/19/24 12:21 BP 172/58 H 02/19/24 12:21 Pulse Ox 98 02/19/24 12:21 O2 Del Method Room Air 02/19/24 12:21 BMI result Body Mass Index 28.9 vss Appearance: Alert.? Oriented X3.? No acute distress.? Head: Normocephalic, atraumatic, no step-offs or deformities Eyes: Pupils equal, round and reactive to light.? Neck: Normal inspection.? Neck supple.? CVS: Normal heart rate and rhythm.? Pulses normal.? Respiratory: No respiratory distress.? Breath sounds normal.? Abdomen: Soft and nontender.? Skin: Skin warm and dry.? Normal skin color.? Normal skin turgor.? Extremities: No lower extremity edema.? No calf ttp. 5/5 strength to bilateral upper and lower extremities + discomfort with palpation of left lateral hip, with overlying large lump, mobile, soft Neuro: Oriented X 3.? No motor deficit.? No sensory deficit. CN 2-12 intact Course Course Course Narrative: This is a Rapid Medical Examination (RME) performed by Ian Patterson PA-C in triage. Full HPI, ROS, assessment and treatment plan per primary provider in the Main ED. 83 yo Tunisian speaking female presenting for evaluation of left sided hip pain and swelling after a fall 2 weeks ago. Was bruised initially and now improved but a large bump remains. she is not on anticoagulation. able to ambulate with cane. large palpable, mobile soft tissue mass on the left hip. Plan: Xray hip/pelvis and check H/H Reevaluation(s) Reevaluation #1: CBC no acute findings needing intervention she has a baseline normocytic anemia. Chemistry no acute findings needing intervention. Slightly elevated BUN and creatinine at baseline will encourage p.o. hydration. X-ray of hips still pending. Time: 13:57 Reevaluation #2: X-ray of the hip mild degenerative disease of left hip. CT abdomen pelvis ordered and pending. Time: 16:17 Reevaluation #3: Patient does not want to wait for imaging states it is taking too long. Would like a call if results are abnormal then she will return. Explained she would be leaving against medical advice as there could potentially be something wrong on scan. Patient and daughter verbalized understanding of this and will be discharged home at this time against medical advice Time: 16:59 Medications Administered Discontinued Medications Generic Name Dose Route Start Last Admin Trade Name Aylin PRN Reason Stop Dose Admin Iohexol 85 ml 02/19/24 15:43 02/19/24 15:44 Iohexol 350 Mg/Ml 75 Ml Infus..Btl IV 02/19/24 15:44 85 ml ONCE ONE Administration Medical Decision Making Medical Decision Making [facility] Narrative: 1357 83-year-old female presents to the emergency department complaints of left sided hip pain status post fall 2 weeks ago. Physical exam tenderness to palpation to lateral aspect of left hip. Patient ambulatory moving with steady gait normal coordination. History and physical exam concerning for contusion versus lipoma versus bursitis. Unlikely large hematoma or hemorrhage. Will rule out fracture dislocation. No signs of neurovascular compromise or acute threat to limb. Plan imaging, basic labs. Differential Diagnosis Differential Diagnoses: The differential diagnosis associated with the presentation includes History and physical exam concerning for contusion versus lipoma versus bursitis. Unlikely large hematoma or hemorrhage. Will rule out fracture dislocation. No signs of neurovascular compromise or acute threat to limb. Admission/Observation Consideration of admission/observation: Escalation of care including admission/observation considered unlikely Lab Data [facility] Lab Attestation statement: I reviewed the patient's lab results. 02/19/24 12:43 02/19/24 12:43 Labs: Lab Results 02/19/24 Range/Units 12:43 WBC 5.0 (4.8-10.8) X10*3/uL RBC 3.83 L (4.20-5.50) X10*6/uL Hgb 11.9 L (12.0-16.0) g/dl Hct 36.0 L (37.0-47.0) % MCV 94.0 (80.0-98.0) fL MCH 31.1 (27.0-33.0) pg MCHC 33.1 (31.0-35.0) g/dl RDW 12.2 (11.0-16.0) % Plt Count 261 (160-400) X10*3/uL MPV 9.6 (9.4-12.3) fL Immature Gran % (Auto) 0.2 (0.0-0.4) % Neut % (Auto) 56.4 (45-73) % Lymph % (Auto) 32.2 (20-40) % [place] % (Auto) 7.0 (2-11) % Eos % (Auto) 3.0 (0-4) % Baso % (Auto) 1.2 (0-2) % Lymph # (Auto) 1.6 (1.2-4.9) X10*3/uL [place] # (Auto) 0.4 (0.1-1.2) X10*3/uL Eos # (Auto) 0.2 (0.0-0.4) X10*3/uL Baso # (Auto) 0.1 (0.0-0.2) X10*3/uL Abs Immat Gran (auto) 0.01 (0.00-0.03) X10*3/uL Absolute Neuts (auto) 2.8 (2.0-8.3) x10*3/uL Absolute Nucleated RBC 0.000 (0.0-0.012) X10*3/uL Nucleated RBC % (auto) 0.0 (0.0-0.2) /100WBC Sodium 140 (135-145) mmol/L Potassium 4.0 (3.3-5.1) mmol/L Chloride 105 (96-108) mmol/L Carbon Dioxide 26 (22-29) mmol/L Anion Gap 13 (12-20) BUN 21 H (9-16) mg/dL Creatinine 0.94 (0.5-1.4) mg/dL Estim Creat Clear Calc 40.1 Estimated GFR 57 Random Glucose 99 (60-115) mg/dL Calcium 9.1 (8.4-10.2) mg/dL Independent Interpretation I performed an independent interpretation of an: Plain X-Ray Radiology Impression Discussion of test interpretation with radiology: I have reviewed the radiologist's reading. External Record Review External record reviewed: Office record, Outpatient record, Prior outpatient labs and Prior outpatient radiology Discharge Plan Discharge Clinical Impression: Hip pain, left, Left against medical advice Patient Disposition: Home, Self-Care Instructions: Arthralgia (ED), Heat Pack Application (ED), Hip Pain (ED) Additional Instructions: Take your medications as prescribed. If you were prescribed antibiotics today, it is important that you take your medication to their entirety, do not skip any doses, do not finish them early. Follow-up with your primary care provider this week. Return to the emergency department with new or worsening symptoms. Such as fevers, chills, chest pain, shortness of breath, nausea, vomiting, dizziness, headache, vision changes, lethargy In case of emergency call 911 Patient decided to leave against medical advice. I took the time to go over risks of leaving against medical advice including . Patient verbalizes understanding of this. Advised them to come back if they change their mind. Prescriptions: No Action (DME) Shower Chair Misc See Rx Instructions .Route Qty: 1 0RF Rx Instructions: As directed cyclobenzaprine 5 mg tablet 5 mg PO BEDTIME PRN (Reason: muscle spasm) 30 Days Qty: 30 0RF fluticasone propionate [Flonase Allergy Relief] 50 mcg/actuation spray,suspension 1 spray intranasal DAILY 30 Days Qty: 16 0RF Rx Instructions: administer into each nostril cholecalciferol (vitamin D3) 25 mcg (1,000 unit) tablet 25 mcg PO DAILY 30 Days Qty: 30 11RF calcium carbonate 600 mg calcium (1,500 mg) tablet 600 mg PO BID 30 Days Qty: 60 11RF lisinopril 40 mg tablet 40 mg PO DAILY Qty: 28 11RF atorvastatin 80 mg tablet 80 mg PO DAILY Qty: 28 11RF hydrochlorothiazide 25 mg tablet 25 mg PO DAILY Qty: 28 11RF loratadine 10 mg tablet 10 mg PO DAILY Qty: 90 0RF aspirin 81 mg tablet,delayed release (DR/EC) 81 mg PO DAILY 90 Days Qty: 90 0RF docusate sodium 100 mg capsule 100 mg PO DAILY 90 Days Qty: 90 0RF furosemide 20 mg tablet 20 mg PO DAILY Qty: 28 0RF multivitamin Tablet 1 tab PO DAILY Qty: 28 0RF naproxen 500 mg tablet 500 mg PO BID PRN (Reason: pain) 30 Days Qty: 60 0RF lansoprazole 30 mg capsule,delayed release(DR/EC) 30 mg PO DAILY Qty: 28 0RF nitrofurantoin monohyd/m-cryst [Macrobid] 100 mg capsule 100 mg PO Q12H 7 Days Qty: 14 0RF Rx Instructions: must administer with a meal/food sertraline 25 mg tablet 25 mg PO DAILY lidocaine 4 % adhesive patch,medicated 1 patch topical DAILY PRN (Reason: pain) Qty: 30 1RF sertraline 100 mg tablet 100 mg PO DAILY fluconazole 150 mg tablet 150 mg PO DAILY Qty: 2 0RF fluconazole 150 mg tablet 150 mg PO .COMPLEX Qty: 2 0RF Rx Instructions: 150 mg orally take first dose today repeat dose in 3 days; nitrofurantoin monohyd/m-cryst [Macrobid] 100 mg capsule 100 mg PO BID Qty: 14 0RF Rx Instructions: must administer with a meal/food Referrals: Antoinette Ku MD [Primary Care Provider] - 2 days Stand Alone Forms: Against Medical Advice Print Language: Tunisian
[2024-02-19 12:53] LABS: MANUAL DIFF FLAG NO
[2024-02-19 12:54] LABS: Basophils Absolute Auto 0.1 X10*3/uL (0.0-0.2); Basophils Percent Auto 1.2 % (0-2); Eosinophils Absolute Auto 0.2 X10*3/uL (0.0-0.4); Hemoglobin 11.9 g/dl (12.0-16.0); Imm Gran Abs Auto 0.01 X10*3/uL (0.00-0.03); Imm Gran Pct Auto 0.2 % (0.0-0.4); Lymphocytes Absolute Auto 1.6 X10*3/uL (1.2-4.9); Lymphocytes Percent Auto 32.2 % (20-40); Mean Corpuscular HGB Conc 33.1 g/dl (31.0-35.0); Mean Corpuscular Hemoglobin 31.1 pg (27.0-33.0); Mean Platelet Volume 9.6 fL (9.4-12.3); Monocytes Absolute Auto 0.4 X10*3/uL (0.1-1.2); Neutrophils Absolute Auto 2.8 x10*3/uL (2.0-8.3); Neutrophils Percent Auto 56.4 % (45-73); Platelet Count 261 X10*3/uL (160-400); Red Blood Count 3.83 X10*6/uL (4.20-5.50); Red Cell Distribution Width 12.2 % (11.0-16.0)
[2024-02-19 13:07] LABS: Anion Gap 13 (12-20); Blood Urea Nitrogen 21 mg/dL (9-16); Calcium 9.1 mg/dL (8.4-10.2); Carbon Dioxide 26 mmol/L (22-29); Chloride 105 mmol/L (96-108); Creatinine Clr Calc Pharmacy 40.1; Estimated Glomerular Filt Rate 57; Glucose Random 99 mg/dL (60-115); Sodium 140 mmol/L (135-145)
[2024-02-19] MEDS: iohexoL 350 MG/ML 75 ML INFUS..BTL 85 ML IV (15:44)
--- NOTE | 2024-02-19 17:08 | PC.NURSE ---
Pt requesting to leave AMA to provider. Pt left without paperwork
[2024-02-19 17:09] VITALS: BP 172/58; PULSE 80; RESP 20; TEMP 36; O2SAT 98
== END 2024-02-19 17:09 | disposition home or self-care (01) ==
PROVIDERS: Physician Assistant; Emergency Provider Emergency Medicine; PCP Internal Medicine
DX: M25.552 Pain in left hip (principal); Z53.29 Procedure and treatment not carried out because of patient's decision for other reasons
CPT/HCPCS: 36415; 73502; 74177; 80048; 85025; 99283; 99284; Q9967

== ENCOUNTER 2024-03-10 15:47 | Outpatient (AMB) | payer OTHER, SELFPAY ==
--- NOTE | 2024-03-10 16:02 | A.OFFVIS_ITS ---
Intake Visit Reasons: 3m pessary maintenance Intake Note: Patient presents today, for Pessary Maintenance: Meds- None Allergies to Antibiotic- No Known Allergies Blood Thinner- Aspirin Materials Handling Coordinator Required: Yes Accompanied by: Daughter Allergies No Known Allergies Allergy (Verified 03/10/24 16:05) HPI Comments Details: 03/10/24--Kelly is an 83-year-old Nepalese-speaking female who was last seen on 06/18/23 for vaginal bleeding. She presents with her daughter today with complaints of the pessary falling out again. Certified electrostatic powder coating technician present. The pessary replaced today. Review of chart: 10/08/23-- pessary changed, cleaned, replaced. patient complains of vaginal itching. Diflucan 150 mg x 2 doses. catheterized PVR 70 mL. FU in 3 months 07/07/23--Kelly is an 82-year-old Nepalese-speaking female who was last seen on 06/18/23 for vaginal bleeding. She presents with her daughter today with complaints of the pessary falling out again. Certified electrostatic powder coating technician present. The pessary was replaced today. 06/18/23-- Kelly is an 82-year-old Nepalese-speaking female who presents to the clinic for vaginal bleeding. She presents with her daughter today who states the patient went to [facility] ED 2 nights ago and they told her to make an appointment. She c/'s of vaginal itching also. Exam: Pessary removed (ring with support) - no vaginal bleeding noted, white creamy discharge. Pessary fitting - New size 6 ring w/o support placed Plan:c/o's vaginal bleeding, pt states she has not had a hysterectomy- SHREDDER TENDER PEAT refer ral, Size # 6 Ring w/o support pessary inserted. Catheterized urine - Negative; Vaginal pruitis, Diflucan 150 mg. Follow up in 10 weeks pessary eval. 06/18/23-- UA-- leuk neg, blood neg 01/29/2023-- The patient is a Luxembourgish speaking female presented today with her duaghter, who interpreted for her. She was last seen by me on 12/30/2022. Her daughter complaints that patient had symptoms of urinary burning. She thinks that she has urinary tract infections. Patient was unable to give voided urine. So, i obtained the urine thought catheterized specimen. I removed the pessary. Urine will be sent for culture and i will start her on macrobid 100 mg BID for 7 days, and have her follow up in 4 months. 12/30/22-- The patient has a pessary in place that was placed about a year ago at a medical office, [facility]. She was last seen on 07/01/22 for vaginal prolapse. She was recommended to Urogynecology to discuss surgical management options at that time. She was also advised to follow up in 3 months if she wishes to continue with pessary management. [facility] Medical History Chest congestion Left knee pain Mild recurrent major depression Uterovaginal prolapse Essential hypertension Hypovitaminosis D Insomnia Depression Pure hypercholesterolemia GERD (gastroesophageal reflux disease) Surgical History No pertinent past surgical history Family History Father CVD (cardiovascular disease) Mother CVD (cardiovascular disease) Hypertension Sister Breast cancer Family/Other FH: mental illness Mental health disorder Social History Housing: Apartment Alcohol intake: unknown Patient Tobacco Use Status: Never used Tobacco e-Cigarette/Vaping Use: Never Used Second Hand Smoke Exposure: No Current occupational status: disabled Current occupation: rt hand Review of Systems Const All systems reviewed & are unremarkable except as noted in HPI and below Reports no additional complaints Eyes Reports no additional complaints ENT Reports no additional complaints Card Reports no additional complaints Resp Reports no additional complaints GI Reports no additional complaints Reports as per HPI Musc Reports no additional complaints Skin/Breast Reports system reviewed and no additional complaints, except as documented Neuro Reports no additional complaints Psych Reports no additional complaints Endo Reports no additional complaints Benny/Lymph Reports no additional complaints Aller/Immun Reports no additional complaints Quality Reporting (2019) Adult ([facility] 138//) Smoking risk assessment performed?: Yes Patient Tobacco Use Status: Never used Tobacco Assessment & Plan Assessment & Plan (1) Vaginal prolapse: Code(s): N81.10 - Cystocele, unspecified Category: Medical (2) Rectocele: Code(s): N81.6 - Rectocele Category: Medical (3) Vaginitis: Code(s): N76.0 - Acute vaginitis Category: Medical Plan Follow up in 4 months pessary maintenance. Patient Instructions: The patient had an opportunity to ask questions regarding treatment plan. The patient expressed understanding and agreement with the above treatment plan. The patient is aware they should contact our office by phone for worsening of their current condition or the appearance of new symptoms. Compliance is encouraged with any medications and followup testing that is ordered. It is a privilege to be allowed the opportunity to participate in the urologic care of your patient. If you have any questions or concerns regarding treatment for the above conditions please do not hesitate to contact me. The office telephone contact is [phone]. This note is constructed in part using voice recognition software. While every effort has been made to ensure accuracy adjusto writer operator errors may have been included. Yours sincerely, Marie Pritchard MD Coding Level of Care Code Est Pt Level 3 (16561) Diagnoses Vaginal prolapse N81.10 Rectocele N81.6 Vaginitis N76.0
== END 2024-03-10 16:28 | disposition home or self-care (01) ==
LOC: HO.HUSH 15:47
PROVIDERS: PCP Internal Medicine; Visit Provider Urology
DX: N81.10 Cystocele, unspecified (principal); N81.6 Rectocele; N76.0 Acute vaginitis
CPT/HCPCS: 99213

== ENCOUNTER → 2024-03-10 15:47 | Outpatient (BNVA) | payer OTHER, SELFPAY | PROVIDERS: PCP Internal Medicine; Visit Provider Urology | DX: N81.10 Cystocele, unspecified (principal); Z46.6 Encounter for fitting and adjustment of urinary device | CPT/HCPCS: 99212 ==

== ENCOUNTER 2024-04-14 13:40 | Outpatient (AMB) | payer OTHER, SELFPAY ==
--- NOTE | 2024-04-14 12:45 | MHC.OFFVIS ---
Intake Visit Reasons: Pessary maintenance Intake Note: Patient is present for PESSARY MAINTENANCE Urology Medication:FLUCONAZOLE,FFUROSEMIDE Antibiotic Allergy:NONE Blood Thinner:ASPIRIN Payroll Specialist Required: No Allergies No Known Allergies Allergy (Verified 04/14/24 13:47) HPI Comments Details: 04/14/24--Kelly is an 83-year-old Citizen Of [place]-speaking female who is here with her daughter, she states the new pessary fell out also. She states her mother has constipation and she knows that is one of the issues. Recommended OTC Miralax. She states the vaginal bulge is worse and her mother is having trouble urinating. Pt states she would like surgical management. Vaginal exam-- complete uterovaginal prolapse white discharge noted. Gelhorn size 6 placed vaginall. Will prescribe diflucan. Review of chart: 03/10/24--Kelly is an 83-year-old Citizen Of [place]-speaking female who was seen on 06/18/23 for vaginal bleeding. She presents with her daughter today with complaints of the pessary falling out again. Certified bottom liquor attendant present. The pessary replaced today. 10/08/23-- pessary changed, cleaned, replaced. patient complains of vaginal itching. Diflucan 150 mg x 2 doses. catheterized PVR 70 mL. FU in 3 months 07/07/23--Kelly is an 82-year-old Citizen Of [place]-speaking female who was last seen on 06/18/23 for vaginal bleeding. She presents with her daughter today with complaints of the pessary falling out again. Certified bottom liquor attendant present. The pessary was replaced today. 06/18/23-- Kelly is an 82-year-old Citizen Of [place]-speaking female who presents to the clinic for vaginal bleeding. She presents with her daughter today who states the patient went to [facility] ED 2 nights ago and they told her to make an appointment. She c/'s of vaginal itching also. Exam: Pessary removed (ring with support) - no vaginal bleeding noted, white creamy discharge. Pessary fitting - New size 6 ring w/o support placed Plan:c/o's vaginal bleeding, pt states she has not had a hysterectomy- SALES COORDINATOR referral, Size # 6 Ring w/o support pessary inserted. Catheterized urine - Negative; Vaginal pruitis, Diflucan 150 mg. Follow up in 10 weeks pessary eval. 06/18/23-- UA-- leuk neg, blood neg 01/29/2023-- The patient is a [place] speaking female presented today with her duaghter, who interpreted for her. She was last seen by me on 12/30/2022. Her daughter complaints that patient had symptoms of urinary burning. She thinks that she has urinary tract infections. Patient was unable to give voided urine. So, i obtained the urine thought catheterized specimen. I removed the pessary. Urine will be sent for culture and i will start her on macrobid 100 mg BID for 7 days, and have her follow up in 4 months. 12/30/22-- The patient has a pessary in place that was placed about a year ago at a medical office, [facility]. She was last seen on 07/01/22 for vaginal prolapse. She was recommended to Urogynecology to discuss surgical management options at that time. She was also advised to follow up in 3 months if she wishes to continue with pessary management. [facility] Medical History Chest congestion Left knee pain Mild recurrent major depression Uterovaginal prolapse Essential hypertension Hypovitaminosis D Insomnia Depression Pure hypercholesterolemia GERD (gastroesophageal reflux disease) Surgical History No pertinent past surgical history Family History Father CVD (cardiovascular disease) Mother CVD (cardiovascular disease) Hypertension Sister Breast cancer Family/Other FH: mental illness Mental health disorder Social History Housing: Apartment Alcohol intake: unknown Patient Tobacco Use Status: Never used Tobacco e-Cigarette/Vaping Use: Never Used Second Hand Smoke Exposure: No Current occupational status: disabled Current occupation: rt hand Review of Systems Const All systems reviewed & are unremarkable except as noted in HPI and below Reports no additional complaints Eyes Reports no additional complaints ENT Reports no additional complaints Card Reports no additional complaints Resp Reports no additional complaints GI Reports no additional complaints Reports as per HPI Musc Reports no additional complaints Skin/Breast Reports system reviewed and no additional complaints, except as documented Neuro Reports no additional complaints Psych Reports no additional complaints Endo Reports no additional complaints Benny/Lymph Reports no additional complaints Aller/Immun Reports no additional complaints Office Procedures Pessary Device Insert Details: Gelhorn size 6 placed vaginally [id number] device insert Results AMB Urinalysis, Automated UA Leukoctes 0 Melinda/uL Last Edit by VISHAL Garrett on 04/14/24 14:12 UA Nitrite Negative Last Edit by VISHAL Garrett on 04/14/24 14:12 UA Urobilinogen 0.2 mg/dL Last Edit by Michael Chand CCM on 04/14/24 14:12 UA Protein 0 mg/dL Last Edit by VISHAL Garrett on 04/14/24 14:12 UA pH 6.0 Last Edit by Michael Chand CCM on 04/14/24 14:12 UA Blood 80 Jake/uL Last Edit by VISHAL Garrett on 04/14/24 14:12 UA Specific [place] 1.015 Last Edit by Michael Chand CCM on 04/14/24 14:12 UA Ketone Negative Last Edit by VISHAL Garrett on 04/14/24 14:12 UA Bilirubin 0 mg/dL Last Edit by VISHAL Garrett on 04/14/24 14:12 UA Glucose 0 mg/dL Last Edit by VISHAL Garrett on 04/14/24 14:12 Quality Reporting (2019) Adult ([facility] 138/08/07/68) Smoking risk assessment performed?: Yes Patient Tobacco Use Status: Never used Tobacco Results Reviewed Results Reviewed: Laboratory Last Values Urine pH (Auto) 6.0 04/14/24 14:12 Specific [place] (Auto) 1.015 04/14/24 14:12 Urine Protein (Auto) 0 mg/dL 04/14/24 14:12 Glucose (UA)(Auto) 0 mg/dL 04/14/24 14:12 Urine Ketones (Auto) Negative 04/14/24 14:12 Urine Blood (Auto) 80 Jake/uL 04/14/24 14:12 Urine Nitrite (Auto) Negative 04/14/24 14:12 Urine Bilirubin (Auto) 0 mg/dL 04/14/24 14:12 Urine Urobilinogen (Auto) 0.2 mg/dL 04/14/24 14:12 Leukocyte Esterase (Auto) 0 Melinda/uL 04/14/24 14:12 Assessment & Plan Assessment & Plan (1) Vaginal prolapse: Code(s): N81.10 - Cystocele, unspecified Category: Medical (2) Rectocele: Code(s): N81.6 - Rectocele Category: Medical (3) Vaginitis: Code(s): N76.0 - Acute vaginitis Category: Medical (4) Complete uterovaginal prolapse: Code(s): N81.3 - Complete uterovaginal prolapse Category: Medical (5) Constipation: Code(s): K59.00 - Constipation, unspecified Category: Medical Plan Follow up in 4-5 weeks to re-eval referral to urogyn Orders: Orders AMB Intravaginal Support Device Insertion Today N81.3 - Complete uterovaginal prolapse AMB Urinalysis Automated Today Z13.9 - Encounter for screening, unspecified Referrals Urogynecology Referral N81.3 - Complete uterovaginal prolapse Medications: New fluconazole 150 mg orally take 1st dose today repeat in 3 days; 2 tabs 0RF Coding Level of Care Code Est Pt Level 4 (85941) Diagnoses Vaginal prolapse N81.10 Rectocele N81.6 Vaginitis N76.0 Complete uterovaginal prolapse N81.3 Constipation K59.00 CPT Codes Pessary Device Insert - CPT: 58715-Leeifup device insert ([id number])
== END 2024-04-14 14:55 | disposition home or self-care (01) ==
LOC: HO.HUSH 13:41
PROVIDERS: PCP Internal Medicine; Visit Provider Urology
DX: N81.10 Cystocele, unspecified (principal); N81.6 Rectocele; N76.0 Acute vaginitis; N81.3 Complete uterovaginal prolapse; K59.00 Constipation, unspecified; Z13.9 Encounter for screening, unspecified
CPT/HCPCS: 57160; 99214

== ENCOUNTER → 2024-04-14 13:40 | Outpatient (BNVA) | payer OTHER, SELFPAY | PROVIDERS: PCP Internal Medicine; Visit Provider Urology | DX: N81.10 Cystocele, unspecified (principal); N76.0 Acute vaginitis; N81.6 Rectocele; K59.00 Constipation, unspecified; Z46.6 Encounter for fitting and adjustment of urinary device; Z96.0 Presence of urogenital implants | CPT/HCPCS: 57160; 81003; 99212 ==

== ENCOUNTER 2024-05-27 15:35 | Outpatient (AMB) | payer OTHER, SELFPAY ==
--- NOTE | 2024-05-27 15:40 | MHC.OFFVIS ---
Intake Visit Reasons: 6 weeks f/u Intake Note: Patient is present for 6 weeks follow [facility] Med: Fluconazole Antibiotic Allergy: None Blood Thinner: Aspirin LABS: Patient Symptoms: Patient states that she has no pain or discomfort, sometimes she cannot hold the urine Cash Shortage Investigator Required: No Accompanied by: Daughter Allergies No Known Allergies Allergy (Verified 05/27/24 16:04) HPI Comments Details: 05/27/24--Varghese is here with her daughter for pessary management. I sent a referral to [facility] Uro gynaecological oncologist but they do not accept the patient's insurance. The patient is still interested in surgical management. Gellhorn size 6 pessary removed cleaned and replaced. Patient states she is tolerating the pessary without discomfort urinating well. 04/14/24--Kelly is an 83-year-old [place] Citizen-speaking female who is here with her daughter, she states the new pessary fell out also. She states her mother has constipation and she knows that is one of the issues. Recommended OTC Miralax. She states the vaginal bulge is worse and her mother is having trouble urinating. Pt states she would like surgical management. Vaginal exam-- complete uterovaginal prolapse white discharge noted. Gelhorn size 6 placed vaginall. Will prescribe diflucan. Review of chart: 03/10/24--Kelly is an 83-year-old [place] Citizen-speaking female who was seen on 06/18/23 for vaginal bleeding. She presents with her daughter today with complaints of the pessary falling out again. Certified clerical clerk present. The pessary replaced today. 10/08/23-- pessary changed, cleaned, replaced. patient complains of vaginal itching. Diflucan 150 mg x 2 doses. catheterized PVR 70 mL. FU in 3 months 07/07/23--Kelly is an 82-year-old [place] Citizen-speaking female who was last seen on 06/18/23 for vaginal bleeding. She presents with her daughter today with complaints of the pessary falling out again. Certified clerical clerk present. The pessary was replaced today. 06/18/23-- Kelly is an 82-year-old [place] Citizen-speaking female who presents to the clinic for vaginal bleeding. She presents with her daughter today who states the patient went to [facility] ED 2 nights ago and they told her to make an appointment. She c/'s of vaginal itching also. Exam: Pessary removed (ring with support) - no vaginal bleeding noted, white creamy discharge. Pessary fitting - New size 6 ring w/o support placed Plan:c/o's vaginal bleeding, pt states she has not had a hysterectomy- INSTRUCTOR ADJUNCT PHARMACY TECHNICIAN referral, Size # 6 Ring w/o support pessary inserted. Catheterized urine - Negative; Vaginal pruitis, Diflucan 150 mg. Follow up in 10 weeks pessary eval. 06/18/23-- UA-- leuk neg, blood neg 01/29/2023-- The patient is a [place] speaking female presented today with her duaghter, who interpreted for her. She was last seen by me on 12/30/2022. Her daughter complaints that patient had symptoms of urinary burning. She thinks that she has urinary tract infections. Patient was unable to give voided urine. So, i obtained the urine thought catheterized specimen. I removed the pessary. Urine will be sent for culture and i will start her on macrobid 100 mg BID for 7 days, and have her follow up in 4 months. 12/30/22-- The patient has a pessary in place that was placed about a year ago at a medical office, [facility]. She was last seen on 07/01/22 for vaginal prolapse. She was recommended to Urogynecology to discuss surgical management options at that time. She was also advised to follow up in 3 months if she wishes to continue with pessary management. COUNTS INCLUDE 234 BEDS AT THE [facility] Medical History Chest congestion Left knee pain Mild recurrent major depression Uterovaginal prolapse Essential hypertension Hypovitaminosis D Insomnia Depression Pure hypercholesterolemia GERD (gastroesophageal reflux disease) Surgical History No pertinent past surgical history Family History Father CVD (cardiovascular disease) Mother CVD (cardiovascular disease) Hypertension Sister Breast cancer Family/Other FH: mental illness Mental health disorder Social History Housing: Apartment Alcohol intake: unknown Patient Tobacco Use Status: Never used Tobacco e-Cigarette/Vaping Use: Never Used Second Hand Smoke Exposure: No Current occupational status: disabled Current occupation: rt hand Review of Systems Const All systems reviewed & are unremarkable except as noted in HPI and below Reports no additional complaints Eyes Reports no additional complaints ENT Reports no additional complaints Card Reports no additional complaints Resp Reports no additional complaints GI Reports no additional complaints Reports as per HPI Musc Reports no additional complaints Skin/Breast Reports system reviewed and no additional complaints, except as documented Neuro Reports no additional complaints Psych Reports no additional complaints Endo Reports no additional complaints Benny/Lymph Reports no additional complaints Aller/Immun Reports no additional complaints Results AMB Urinalysis, Automated UA Leukoctes 15 Melinda/uL Last Edit by Maria Dolores Dias CMA on 05/27/24 16:10 UA Nitrite Negative Last Edit by Maria Dolores Dias CMA on 05/27/24 16:10 UA Urobilinogen 0.2 mg/dL Last Edit by Maria Dolores Dias CMA on 05/27/24 16:10 UA Protein 15 mg/dL Last Edit by Maria Dolores Dias CMA on 05/27/24 16:10 UA pH 6.0 Last Edit by Maria Dolores Dias CMA on 05/27/24 16:10 UA Blood 0 Jake/uL Last Edit by Maria Dolores Dias CMA on 05/27/24 16:10 UA Specific [place] 1.030 Last Edit by Maria Dolores Dias CMA on 05/27/24 16:10 UA Ketone Negative Last Edit by Maria Dolores Dias CMA on 05/27/24 16:10 UA Bilirubin 0 mg/dL Last Edit by Maria Dolores Dias CMA on 05/27/24 16:10 UA Glucose 0 mg/dL Last Edit by Maria Dolores Dias CMA on 05/27/24 16:10 Quality Reporting (2019) Adult ([facility] 138/08/07/68) Smoking risk assessment performed?: Yes Patient Tobacco Use Status: Never used Tobacco Results Reviewed Results Reviewed: Laboratory Last Values Urine pH (Auto) 6.0 05/27/24 15:51 Specific [place] (Auto) 1.030 05/27/24 15:51 Urine Protein (Auto) 15 mg/dL 05/27/24 15:51 Glucose (UA)(Auto) 0 mg/dL 05/27/24 15:51 Urine Ketones (Auto) Negative 05/27/24 15:51 Urine Blood (Auto) 0 Jake/uL 05/27/24 15:51 Urine Nitrite (Auto) Negative 05/27/24 15:51 Urine Bilirubin (Auto) 0 mg/dL 05/27/24 15:51 Urine Urobilinogen (Auto) 0.2 mg/dL 05/27/24 15:51 Leukocyte Esterase (Auto) 15 Melinda/uL 05/27/24 15:51 Assessment & Plan Assessment & Plan (1) Vaginal prolapse: Code(s): N81.10 - Cystocele, unspecified Category: Medical (2) Rectocele: Code(s): N81.6 - Rectocele Category: Medical (3) Vaginitis: Code(s): N76.0 - Acute vaginitis Category: Medical (4) Complete uterovaginal prolapse: Code(s): N81.3 - Complete uterovaginal prolapse Category: Medical (5) Constipation: Code(s): K59.00 - Constipation, unspecified Category: Medical Plan Follow up in 3 months for pessary maintenance. Patient would like surgical management will see if there is another Uro gynaecological oncologist group available that takes the patient's insurance Orders: Orders AMB Urinalysis Automated Today Z13.9 - Encounter for screening, unspecified Patient Instructions: The patient had an opportunity to ask questions regarding treatment plan. The patient expressed understanding and agreement with the above treatment plan. The patient is aware they should contact our office by phone for worsening of their current condition or the appearance of new symptoms. Compliance is encouraged with any medications and followup testing that is ordered. It is a privilege to be allowed the opportunity to participate in the urologic care of your patient. If you have any questions or concerns regarding treatment for the above conditions please do not hesitate to contact me. The office telephone contact is [phone]. This note is constructed in part using voice recognition software. While every effort has been made to ensure accuracy shotgun shell loading machine operator errors may have been included. Yours sincerely, Marie Pritchard MD Coding Diagnoses Vaginal prolapse N81.10 Rectocele N81.6 Vaginitis N76.0 Complete uterovaginal prolapse N81.3 Constipation K59.00
== END 2024-05-27 16:39 | disposition home or self-care (01) ==
PROVIDERS: PCP Internal Medicine; Visit Provider Urology
DX: Z13.9 Encounter for screening, unspecified (principal)

== ENCOUNTER → 2024-05-27 15:35 | Outpatient (BNVA) | payer OTHER, SELFPAY | PROVIDERS: PCP Internal Medicine; Visit Provider Urology | DX: N81.10 Cystocele, unspecified (principal); N81.6 Rectocele; N76.0 Acute vaginitis; N81.3 Complete uterovaginal prolapse; K59.00 Constipation, unspecified | CPT/HCPCS: 81003; 99212 ==

== ENCOUNTER 2024-07-28 16:51 | Outpatient (AMB) | payer OTHER, SELFPAY ==
--- OUTSIDE RECORDS SUMMARY | 2024-07-28 16:54 | XMS_ITS ---
Author Name AUSTINKat WILD, RN, RD, LANEY Address [address] [place] [address] Phone [phone] [facility] Care Team Providers Care Care Support Representative Name Role Phone LANEY FERNANDEZ Unavailable [phone] [facility] Unavailable [phone] Reason for Referral Not Available Allergies, adverse reactions, alerts No known allergies History of medication use Medication Class Instructions Start Date End Date Naproxen 500 mg Tab No Data Available 2022-04-17 No Data Available Lansoprazole 30 mg Cap delayed rel No Data Available No Data Available Lisinopril 40 mg Tab No Data Available 2022-03-20 No Data Available Loratadine 10 mg Tab No Data Available 2022-02-21 No Data Available MULTIVITAMIN TABLET No Data Available 2022-04-17 No Data Available Sertraline 25 mg Tab No Data Available 2022-02-12 No Data Available VITAMIN D3 25 MCG TABLET No Data Available 2022-01-23 No Data Available Aspirin Low Dose 81 mg Tab delayed rel No Data Availab le 2021-12-12 No Data Available Atorvastatin Calcium 80 mg Tab No Data Available 03-20 No Data Available Docusate Sodium 100 mg Cap No Data Available 5 No Data Available Furosemide 20 mg Tab No Data Available 2021-12-26 No Data Available hydroCHLOROthiazide 25 mg Tab No Data Available 2021-06 0-05 No Data Available traZODone 50 mg Tab No Data Available 2022-02-12 No Data Available Problem List Problem Status Onset Date Resolved Date MDD (major depressive disord er), recurrent episode, mild Active 2022-10-15 N/A Hyperlipidemia Active 2022-10-15 N/A Hypertension Active 2022-10-15 N/A Social History Sex Female Functional Status No Information Mental Status No Information Assessments Not Available Plan of Care Not Available
--- OUTSIDE RECORDS SUMMARY | 2024-07-28 16:54 | XMS_ITS | Clinical Summary ---
Author Organization [employer] [facility] Address [address] [place] [address] Care Team Providers Care Centrifugal Drier Operator Name Role Phone Unavailable Primary Care Provider Unavailabl e Social History Tobacco Use Types Packs/Day Years Used Date Smoking Tobacco: Never Assessed Comments Unknown Sex and Gender Information Value Date Recorded Sex Assigned at Female 04/15/2022 10:14 AM EDT Legal Sex Female 10:14 AM EDT Gender Identity Choose not to disclose 10:14 AM EDT Sexual Orientation Choose not to disclose 2021 10:14 AM EDT Plan of Treatment Health Maintenance Due Date Last Done Comments Depression Screening 1942 Alcohol/Substance Use Screening 1954 Tobacco Screening 1954 DTaP/Tdap/Td Vaccines (1 - Tdap) 1961 Pneumococcal Vaccine: 50+ Ye ars (1 of 1 - PCV) 1992 Zoster Vaccines (1 of 2) 1992 RSV Patients and Pa tients Aged 60 years or older (1 - 1-dose 75+ series) 2017 COVID-19 Vaccine ( - 2023-2 5 season) 2024 Influenza Vaccine (#1) 2024 HIB Vaccines Aged Out No longer eligi ble based on patient's age to complete this topic HPV Vaccines Aged Out No longer eligi ble based on patient's age to complete this topic Hepatitis A Vaccines Aged Out No long er eligible based on patient's age to complete this topic Hepatitis B Vaccines Aged Out No long er eligible based on patient's age to complete this topic IPV Vaccines Aged Out No longer eligi ble based on patient's age to complete this topic Meningococcal Vaccine Aged Out No oscar barby eligible based on patient's age to complete this topic RSV under 20 months Aged Out No longe r eligible based on patient's age to complete this topic Rotavirus Vaccines Aged Out No longer eligible based on patient's age to complete this topic
--- NOTE | 2024-07-28 16:57 | MHC.PC.OV ---
Vital Signs 07/28/24 16:59 Height 5 ft Weight 154 lb BMI 30.1 BP 132/78 Blood Pressure Location Lt brachial Position Sitting Intake Visit Reasons: Annual Exam Intake Note: Patient here for an annual physical exam Finisher Plate Required: Yes Finisher Plate Language: Environmental Emergencies Planner Name: Antoinette Hernandez MD Information Interpreted: non-clinical & clinical Accompanied by: Daughter Allergies No Known Allergies Allergy (Verified 07/28/24 17:09) Medication List - Last Reconciled 07/28/24 by Antoinette Hernandez MD aspirin 81 mg PO DAILY 90 days atorvastatin 80 mg PO DAILY calcium carbonate 600 mg PO BID 30 days cholecalciferol (vitamin D3) 25 mcg PO DAILY 30 days cyclobenzaprine 5 mg PO BEDTIME PRN 30 days docusate sodium 100 mg PO DAILY 90 days fluticasone propionate 50 mcg/actuation (Flonase Allergy Relief) 1 spray intranasal DAILY 30 days furosemide 20 mg PO DAILY hydrochlorothiazide 25 mg PO DAILY lansoprazole 30 mg PO DAILY lidocaine 4% 1 patch topical DAILY PRN lisinopril 40 mg PO DAILY loratadine 10 mg PO DAILY multivitamin 1 tab PO DAILY naproxen 500 mg PO BID PRN 30 days sertraline 25 mg PO DAILY sertraline 100 mg PO DAILY Shower Chair As directed Tobacco use date assessed: 07/28/24 Fall risk assessment: No Falls in past year Last assessed Fall Risk: 07/28/24 Dental Screening Dental Screen Date: 07/28/24 Did you have a dental visit in the last 12 months?: No Did you have a dental problem in the last 6 months where you did not have access to dental care?: No Was dental information given to patient?: Patient has dentist HPI HPI Comments History of Present Illness Details The patient is an 84-year-old female presenting for an annual physical examination. She has a history of essential hypertension managed with lisinopril 40 mg. Hyperlipidemia is controlled with atorvastatin 80 mg. Depression is being treated with sertraline 100 mg, and the patient reports ongoing symptoms of low mood. She has known osteoarthritis causing discomfort, for which she uses naproxen as needed. The patient has urinary incontinence managed with a pessary, previously placed due to pelvic organ prolapse, which she reports requires surgical intervention. She denies any surgeries but describes bladder concerns requiring urogynecology referral. The patient has bilateral sensorineural hearing loss and uses a hearing aid. Her family history indicates her parents due to heart disease. She does not smoke or consume alcohol. Complains of right shoulder pain. - Vaccinations are up to date, including tetanus and pneumococcal vaccines. - Recent influenza vaccination administered at the current visit. - Last mammogram was performed a year ago. - Bone density testing (DXA) needs updating as it has not been performed recently. - Colonoscopies are no longer performed post-age 65 according to guidelines. - Encouraged laboratory testing for cholesterol, glucose, and renal function. [facility] Medical History (Updated 07/28/24 @ 17:28 by Antoinette Hernandez MD) Chest congestion Left knee pain Mild recurrent major depression Uterovaginal prolapse Essential hypertension Hypovitaminosis D Insomnia Depression Pure hypercholesterolemia GERD (gastroesophageal reflux disease) Surgical History No pertinent past surgical history Family History Father CVD (cardiovascular disease) Mother CVD (cardiovascular disease) Hypertension Sister Breast cancer Family/Other FH: mental illness Mental health disorder Social History (Updated 07/28/24 @ 17:16 by Antoinette Hernandez MD) Housing: Apartment Alcohol intake: never Patient Tobacco Use Status: Never used Tobacco e-Cigarette/Vaping Use: Never Used Second Hand Smoke Exposure: No Current occupational status: disabled Current occupation: rt hand Cognitive needs: No Hearing needs: No Vision needs: No Questionnaire PHQ-9 Over the last 2 weeks, how often have you been bothered by any of the following problems? 1. Little interest or pleasure in doing things: more than half the days 2. Feeling down, depressed, or hopeless: several days 3. Trouble falling or staying asleep, or sleeping too much: several days 4. Feeling tired or having little energy: several days 5. Poor appetite or overeating: several days 6. Feeling bad about yourself - or that you are a failure or have let yourself or your family down: not at all 7. Trouble concentrating on things, such as reading the newspaper or watching television: several days 8. Moving or speaking so slowly that other people could have noticed. Or the opposite - being so fidgety or restless that you have been moving around a lot more than usual: not at all 9. Thoughts that you would be better off or of hurting yourself in some way: not at all Total score: 7 Depression Screening Interpretation: Positive Depression Screening Follow-up: Existing condition and Follow-up Visit Requested Depression Screening Done: Yes 62131 - PHQ-9 Billing: Yes Source: Developed by Drs. Geovanni Keenan, Joanne Davidson, Fabian Randle and colleagues, with an educational gwen from [employer]. Thrive Questionnaire Date Thrive assessed: 07/28/24 I am a: Parent/Caregiver What is your living situation today?: I have a steady place to live Within the past 12 months, did the food you bought not last and you didn't have the money to get more?: Never true Within the past 12 months, did you worry whether your food would run out before you got money to buy more?: Never true Do you have trouble paying for medicines?: No Do you have trouble getting transportation to medical appointments?: No Do you have trouble paying your heating and electricity bill?: No Do you have trouble taking care of your child, family member or friend?: No Do you have trouble with day-to-day activities such as bathing, preparing meals, shopping, managing finances, etc.?: No Are you currently unemployed and looking for a job?: No Are you interested in more education?: No Please select the resources that you would like help with: Daily support Currently or been in a relationship where the following occur: No concerns reported THRIVE Score: 0 AUDIT C Alcohol Use Questionnaire (AUDIT-C) 1. How often do you have a drink containing alcohol?: Never Total Score: 0 TYLER-7 AMB Questionnaire TYLER-7 Date TYLER - 7 assessed: 07/28/24 Feeling nervous, anxious, or on edge: 0 = Not at all Not being able to stop or control worryin = Not at all Worrying too much about different things: 0 = Not at all Trouble relaxin = Not at all Being so restless that it is hard to sit still: 0 = Not at all Becoming easily annoyed or irritable: 0 = Not at all Feeling afraid as if something awful might happen: 0 = Not at all Total TYLER-7 score (0-4 normal; 5-9 mild; 10-14 moderate; 15-21 severe): 0 Source: Developed by Drs. Geovanni Keenan, Joanne Davidson, Fabian Randle and colleagues, with an educational gwen from [employer]. TYLER-7 Assessment Billing TYLER-7 Assessment Tool: TYLER-7 Assessment 91294 Review of Systems Const All systems reviewed & are unremarkable except as noted in HPI and below Card Denies chest pain at rest, Denies chest pain with activity, Denies edema, Denies irregular heart rhythm, Denies claudication, Denies dyspnea, Denies dyspnea on exertion, Denies orthopnea, Denies paroxysmal nocturnal dyspnea and Denies slow heart rate Resp Denies cough, Denies dyspnea and Denies dyspnea on exertion GI Denies abdominal pain, Denies change in bowel habits, Denies excessive flatus, Denies nausea and Denies vomiting Denies urinary incontinence, Denies urinary hesitancy and Denies urinary urgency Musc Denies atrophy, Denies deformity and Denies limited range of motion Skin/Breast Denies bleeding lesions, Denies changing lesions and Denies rash Physical exam (Primary Care) Vital Signs: Last Vital Signs BP 132/78 07/28/24 16:59 BMI result Body Mass Index 30.1 BMI Assessment/Plan discussion: High BMI High, discussed plan: lifestyle, weight reduction, dietary and physical activity Tobacco/Smoking Status: Tobacco use Status Tobacco use date assessed 07/28/24 07/28/24 17:04 Patient Tobacco Use Status Never used Tobacco 07/28/24 17:16 e-Cigarette/Vaping Use Never Used 07/28/24 17:16 PHQ-9: PHQ-9 Score PHQ-9: Total score 7 07/28/24 17:31 Depression Screening Interpretation: Positive Depression Screening Follow-up: Existing condition and Follow-up Visit Requested Thrive Assessment: Date of Thrive Assessment Date Thrive assessed 07/28/24 07/28/24 17:04 Currently or been in a relationship where the following occur: No concerns reported HENMT Head: Yes normal to inspection, Yes normocephalic and Yes atraumatic Ears: external ears normal Eyes General: appearance normal, both eyes and all related structures Eyelids: Yes eyelids normal Conjunctivae: conjunctivae normal Neck Neck: Yes normal visual inspection and Yes supple Resp Effort & Inspection: normal respiratory effort Auscultation: clear to auscultation bilaterally Cardio Jugular venous distension: no JVD Rate: regular rate Rhythm: regular rhythm Heart sounds: S1 normal heart sound present and S2 normal heart sound present GI Inspection: Yes normal to inspection Palpation (GI): Soft to palpation and nontender Auscultation: normal bowel sounds Skin General skin exam: no rashes or lesions noted Neuro General: no focal motor deficits Extrem General: Yes full ROM Psych Appearance: grossly normal Office Procedures Flu Questionnaire Does the patient have a severe egg allergy?: No Does the patient have severe life threatening allergies?: No Does the patient have a fever or illness today?: No Has the patient ever had Guillain-M[place] Syndrome?: No Has the patient ever had any past reaction to a flu shot?: No Immunizations Fluarix Triv 9845-2521 (PF) 45 mcg (15 mcg x 3)/0.5 mL IM syringe Performing Provider: Antoinette Hernandez MD [facility] Administered by: BETTE Angeles on 07/28/24 17:31 Dose Route Admin Location Dispensed Lot Number Expiration Date NDC Hose Coupling Joiner 0.5 mL IM Left Deltoid 0.5 mL [id number] 12/13/24 [id number] [employer] VIS Given Date VIS Provided VIS Publication Date 07/28/24 Single Vaccine 21 Eligibility Eligibility Date Funding Source Not [facility] Eligible 07/28/24 Private Coding Level of Care Code Est Pt Level 3 (04630) Est Pt Prev Care >65y(55029) Diagnoses Physical exam Z00.00 Right shoulder pain M25.511 Complete uterovaginal prolapse N81.3 Mild recurrent major depression F33.0 Additional Codes TYLER-7 Assessment Billing - TYLER-7 Assessment Tool: TYLER-7 Assessment 19700 ([id number]) PHQ-9 - 77904 - PHQ-9 Billing: Yes ([id number]) Time Spent (min) 34 Assessment & Plan Assessment & Plan (1) Physical exam: Code(s): Z00.00 - Encounter for general adult medical examination without abnormal findings Category: Medical (2) Right shoulder pain: Code(s): M25.511 - Pain in right shoulder Category: Medical (3) Complete uterovaginal prolapse: Code(s): N81.3 - Complete uterovaginal prolapse Category: Medical (4) Mild recurrent major depression: Code(s): F33.0 - Major depressive disorder, recurrent, mild Category: Medical Plan - Continue current medication regimens for hypertension, hyperlipidemia, and depression. - Administer influenza vaccine. - Schedule bone density test DXA) to assess osteoporosis risk. - Advise follow-up on lab testing for cholesterol, glucose, and renal function. - Refer to orthopedics for shoulder discomfort. - Discuss further urogynecology consultation regarding bladder prolapse and potential surgery. - Managed osteoarthritis symptoms with nonsteroidal anti-inflammatory drugs as tolerated. Patient was informed and verbally consented to the use of an ambient scribe for clinic note documentation during this visit. During the visit, we discussed the management of the patient's current health conditions and potential interventions. I reviewed her medication adherence and adjusted sertraline to continue managing her depression symptoms. We talked about the benefits of scheduling a bone density test to assess her risk for osteoporosis given her age and history of falls. Both the influenza vaccine and routine lab work were addressed and will be followed up for assessment of her cardiovascular risk profile and renal function. I discussed the importance of consulting with urogynecology about the pessary and potential surgical options for bladder prolapse. We reviewed her right shoulder pain, and I recommended exploring orthopedic consultation further. I ensured the patient understood the risks, benefits, and alternatives for suggested interventions and made appropriate follow-up recommendations. Orders: Orders Complete Blood Count Auto Diff 07/28/24 D64.9 - Anemia, unspecified IRON PROFILE 07/28/24 D64.9 - Anemia, unspecified Comprehensive [place]. Panel Fast 07/28/24 Z00.00 - Encounter for general adult medical examination without abnormal findings Lipid Panel 07/28/24 Z00.00 - Encounter for general adult medical examination without abnormal findings XR DEXA axial skeleton 07/28/24 Z00.00 - Encounter for general adult medical examination without abnormal findings, Z78.0 - Asymptomatic menopausal state PT Evaluation and Treatment 07/28/24 M25.511 - Pain in right shoulder Influenza [id number] Immunization 07/28/24 Z23 - Encounter for immunization Referrals Orthopedics Referral M25.511 - Pain in right shoulder Urogynecology Referral N81.3 - Complete uterovaginal prolapse Patient Instructions: - Adhere to the current medication plan as prescribed. - Visit the lab for blood tests after fasting, within the next 3 months. - Schedule a bone density test when feasible. - Follow up with urogynecology regarding the pessary and potential surgical options. - Use hearing protection around loud noises. - Report any worsening symptoms or new concerns promptly. - Continue with physical exercises as tolerated and remain active at home. - Use nonsteroidal anti-inflammatory drugs for pain management sparingly. - Contact the office if there are any questions regarding care or medications.
[2024-07-28 16:59] VITALS: BP 132/78; BMI 30.1
== END 2024-07-28 17:37 | disposition home or self-care (01) ==
PROVIDERS: PCP Internal Medicine; Visit Provider Internal Medicine
DX: Z23 Encounter for immunization (principal)

== ENCOUNTER → 2024-07-28 16:51 | Outpatient (BNVA) | payer OTHER, SELFPAY | PROVIDERS: PCP Internal Medicine; Visit Provider Internal Medicine | DX: Z00.00 Encounter for general adult medical examination without abnormal findings (principal); Z23 Encounter for immunization; M25.511 Pain in right shoulder; N81.3 Complete uterovaginal prolapse; F33.0 Major depressive disorder, recurrent, mild | CPT/HCPCS: 90471; 90656; 96127; 99212; 99397 ==

== ENCOUNTER 2024-12-10 13:28 | Outpatient (AMB) | payer OTHER, SELFPAY ==
--- NOTE | 2024-12-10 13:56 | A.OFFVIS_ITS ---
Intake Visit Reasons: pessary maint- gelhorn Intake Note: Patient is present for Pessary maintenance-gelhorn Urology Med: None Antibiotic Allergy: None Blood Thinner: Aspirin Director Of Graduate Medical Education Required: No Accompanied by: Daughter Allergies No Known Allergies Allergy (Verified 12/10/24 13:58) HPI Comments Details: 12/10/24 History of Present Illness - The patient is an 84-year-old female presenting for pessary management. - No complaints of burning or significant bleeding were reported. - The patient has experienced mild itching previously, but not currently. -Gellhorn size 6 pessary removed cleaned and replaced. Patient states she is tolerating the pessary without discomfort urinating well. Discussion Notes During the visit, we discussed the management of the pessary, including the absence of infection signs. The patient was advised on the use of feminine hygiene products to maintain cleanliness and prevent secretion buildup. 05/27/24--Varghese is here with her daughter for pessary management. I sent a referral to [facility] but they do not accept the patient's insurance. The patient is still interested in surgical management. Gellhorn size 6 pessary removed cleaned and replaced. Patient states she is tolerating the pessary without discomfort urinating well. 04/14/24--Kelly is an 83-year-old Jamaican-speaking female who is here with her daughter, she states the new pessary fell out also. She states her mother has constipation and she knows that is one of the issues. Recommended OTC Miralax. She states the vaginal bulge is worse and her mother is having trouble urinating. Pt states she would like surgical management. Vaginal exam-- complete uterovaginal prolapse white discharge noted. Gelhorn size 6 placed vaginall. Will prescribe diflucan. 03/10/24--Kelly is an 83-year-old Jamaican-speaking female who was seen on 06/18/23 for vaginal bleeding. She presents with her daughter today with complaints of the pessary falling out again. Certified automotive parts interpreter present. The pessary replaced today. 10/08/23-- pessary changed, cleaned, replaced. patient complains of vaginal itching. Diflucan 150 mg x 2 doses. catheterized PVR 70 mL. FU in 3 months 07/07/23--Kelly is an 82-year-old Jamaican-speaking female who was last seen on 06/18/23 for vaginal bleeding. She presents with her daughter today with complaints of the pessary falling out again. Certified automotive parts interpreter present. The pessary was replaced today. 06/18/23-- Kelly is an 82-year-old Jamaican-speaking female who presents to the clinic for vaginal bleeding. She presents with her daughter today who states the patient went to [facility] ED 2 nights ago and they told her to make an appointment. She c/'s of vaginal itching also. Exam: Pessary removed (ring with support) - no vaginal bleeding noted, white creamy discharge. Pessary fitting - New size 6 ring w/o support placed Plan:c/o's vaginal bleeding, pt states she has not had a hysterectomy- LEGAL SUPPORT SPECIALIST referral, Size # 6 Ring w/o support pessary inserted. Catheterized urine - Negative; Vaginal pruitis, Diflucan 150 mg. Follow up in 10 weeks pessary eval. 06/18/23-- UA-- leuk neg, blood neg 01/29/2023--The patient is a Icelandic speaking female presented today with her duaghter, who interpreted for her. She was last seen by me on 12/30/2022. Her daughter complaints that patient had symptoms of urinary burning. She thinks that she has urinary tract infections. Patient was unable to give voided urine. So, i obtained the urine thought catheterized specimen. I removed the pessary. Urine will be sent for culture and i will start her on macrobid 100 mg BID for 7 days, and have her follow up in 4 months. 12/30/22--The patient has a pessary in place that was placed about a year ago at a medical office, [facility]. She was last seen on 07/01/22 for vaginal prolapse. She was recommended to Urogynecology to discuss surgical management options at that time. She was also advised to follow up in 3 months if she wishes to continue with pessary management. [facility] Medical History Chest congestion Left knee pain Mild recurrent major depression Uterovaginal prolapse Essential hypertension Hypovitaminosis D Insomnia Depression Pure hypercholesterolemia GERD (gastroesophageal reflux disease) Surgical History No pertinent past surgical history Family History Father CVD (cardiovascular disease) Mother CVD (cardiovascular disease) Hypertension Sister Breast cancer Family/Other FH: mental illness Mental health disorder Social History Housing: Apartment Alcohol intake: never Patient Tobacco Use Status: Never used Tobacco e-Cigarette/Vaping Use: Never Used Second Hand Smoke Exposure: No Current occupational status: disabled Current occupation: rt hand Cognitive needs: No Hearing needs: No Vision needs: No Review of Systems Const All systems reviewed & are unremarkable except as noted in HPI and below Reports no additional complaints Eyes Reports no additional complaints ENT Reports no additional complaints Card Reports no additional complaints Resp Reports no additional complaints GI Reports no additional complaints Reports as per HPI Musc Reports no additional complaints Skin/Breast Reports system reviewed and no additional complaints, except as documented Neuro Reports no additional complaints Psych Reports no additional complaints Endo Reports no additional complaints Benny/Lymph Reports no additional complaints Aller/Immun Reports no additional complaints Results AMB Urinalysis, Automated UA Leukoctes 0 Melinda/uL Last Edit by VISHAL Garrett on 12/10/24 16:34 UA Nitrite Negative Last Edit by VISHAL Garrett on 12/10/24 16:34 UA Urobilinogen 3.5 mg/dL Last Edit by VISHAL Garrett on 12/10/24 16:3 4 UA Protein 0 mg/dL Last Edit by VISHAL Garrett on 12/10/24 16:34 UA pH 6.0 Last Edit by VISHAL Garrett on 12/10/24 16:34 UA Blood 0 Jake/uL Last Edit by VISHAL Garrett on 12/10/24 16:34 UA Specific [place] 1.020 Last Edit by VISHAL Garrett on 12/10/24 16: 34 UA Ketone Negative Last Edit by VISHAL Garrett on 12/10/24 16:34 UA Bilirubin 0 mg/dL Last Edit by VISHAL Garrett on 12/10/24 16:34 UA Glucose 0 mg/dL Last Edit by [facility] on 12/10/24 16:34 Results Reviewed Results Reviewed: Laboratory Last Values Urine pH (Auto) 6.0 12/10/24 16:33 Specific [place] (Auto) 1.020 12/10/24 16:33 Urine Protein (Auto) 0 mg/dL 12/10/24 16:33 Glucose (UA)(Auto) 0 mg/dL 12/10/24 16:33 Urine Ketones (Auto) Negative 12/10/24 16:33 Urine Blood (Auto) 0 Jake/uL 12/10/24 16:33 Urine Nitrite (Auto) Negative 12/10/24 16:33 Urine Bilirubin (Auto) 0 mg/dL 12/10/24 16:33 Urine Urobilinogen (Auto) 3.5 mg/dL 12/10/24 16:33 Leukocyte Esterase (Auto) 0 Melinda/uL 12/10/24 16:33 Date of Service: 02/19/24 CT ABDOMEN AND PELVIS WITH CONTRAST CLINICAL INFORMATION: Lump. Question hernia versus hematoma status post fall COMPARISON: None available. TECHNIQUE: Multidetector volumetric images were obtained from the superior aspect of the liver through the pubic symphysis following administration 85 mL of Omnipaque 350 intravenous contrast. Sagittal and coronal reformatted images were obtained on the technologist's workstation. Oral contrast: No This CT examination was performed using dose optimization techniques as appropriate, variously including the following: *Automated exposure control *Adjustment of mA and/or kV according to patient size (this includes techniques or standardized protocols for targeted exams where dose is matched to indication/reason for exam; i.e. extremities or head) *Use of iterative reconstruction technique DLP: 8:30 mGy-cm FINDINGS: LUNG BASES: The visualized lung bases are unremarkable. LIVER, GALLBLADDER, AND BILIARY TREE: The liver is normal in size, shape, and attenuation. No focal hepatic lesion or biliary ductal dilatation is present. Gallbladder is filled with stones which are laminated. No acute inflammatory changes. PANCREAS: Unremarkable. SPLEEN: Unremarkable. ADRENAL GLANDS: Unremarkable. KIDNEYS AND URETERS: Left kidney known. Motion degradation limits assessment of the right kidney. There is cortical thinning and calcification likely representing sequelae of old infection. No hydronephrosis grossly. No perinephric collection. BLADDER: Unremarkable. GASTROINTESTINAL TRACT: Severe diverticulosis especially distal colon. No acute inflammatory changes. Moderate amount stool retention. No small bowel pathology. Moderate-sized axial type hiatus hernia. Pessary in place. No free fluid. ABDOMINAL WALL: No significant hernia is appreciated. LYMPH NODES: Normal. VASCULAR: Unremarkable. PELVIC VISCERA: Unremarkable. OSSEOUS STRUCTURES: No hip fracture. There is a large ovoid lesion within this extends fat lateral to the left hip measuring up to 10.6 cm. It measures -15 Hounsfield units indicating an element of fat necrosis. No additional findings. CT/CT abdomen pelvis w IV con IMPRESSION: 1. No evidence for any inguinal hernia. 2. Large fat-containing lesion left hip as above. 3. Cholelithiasis without acute inflammatory changes. 4. Chronic findings as above. Assessment & Plan Assessment & Plan (1) Vaginal prolapse: Code(s): N81.10 - Cystocele, unspecified Category: Medical (2) Rectocele: Code(s): N81.6 - Rectocele Category: Medical (3) Vaginitis: Code(s): N76.0 - Acute vaginitis Category: Medical (4) Complete uterovaginal prolapse: Code(s): N81.3 - Complete uterovaginal prolapse Category: Medical (5) Constipation: Code(s): K59.00 - Constipation, unspecified Category: Medical Plan Plan FU 3-4 months pessary maintenance FU on referral sent to urogyn Orders: Orders AMB Urinalysis Automated 12/10/24 Z13.9 - Encounter for screening, unspecified Patient Instructions: The patient had an opportunity to ask questions regarding treatment plan. The patient expressed understanding and agreement with the above treatment plan. The patient is aware they should contact our office by phone for worsening of their current condition or the appearance of new symptoms. Compliance is encouraged with any medications and followup testing that is ordered. It is a privilege to be allowed the opportunity to participate in the urologic care of your patient. If you have any questions or concerns regarding treatment for the above conditions please do not hesitate to contact me. The office telephone contact is [phone]. This note is constructed in part using voice recognition software. While every effort has been made to ensure accuracy publication distributor errors may have been included. Yours sincerely, Marie Pritchard MD Scribe Plan - Not visible on output: Patient was informed and verbally consented to the use of an ambient scribe for clinic note documentation during this visit. Coding Level of Care Code Est Pt Level 3 (31577) Complex EM visit Add On G2211 Diagnoses Vaginal prolapse N81.10 Rectocele N81.6 Vaginitis N76.0 Complete uterovaginal prolapse N81.3 Constipation K59.00
--- OUTSIDE RECORDS SUMMARY | 2024-12-10 13:57 | XMS_ITS ---
Author Name Cain Sy APRN Address [address] [place] [address] Phone [phone] [facility] Care Team Providers Care Finance Attorney Name Role Phone Sommer Sy Unavailable [phone] [facility] Unavailable [phone] Reason for Referral Not Available Allergies, adverse [...] List Problem Status Onset Date Resolved Date Synopsis MDD (major depressive disorder), recurrent episode, mild Active 2022-10-15 N/A on trazadone and sertralinestable no recent episodes Hyperlipidemia Active 2022-10-15 N/A on atorvas tatindietary modifications Hypertension Active 2022-10-15 N/A on lisinopri l, HCTZ, furosemidemonitor BP daily maintain < 140/80low na dietexercise as tolerated Social History Sex Female Functional Status No Information Mental Status No Information Assessments Not Available Plan of Care Not Available
== END 2024-12-10 15:03 | disposition home or self-care (01) ==
LOC: HO.HUSH 13:29
PROVIDERS: PCP Internal Medicine; Visit Provider Urology
DX: N81.3 Complete uterovaginal prolapse (principal); N76.0 Acute vaginitis; K59.00 Constipation, unspecified
CPT/HCPCS: 99213; G2211

== ENCOUNTER → 2024-12-10 13:28 | Outpatient (BNVA) | payer OTHER, SELFPAY | PROVIDERS: PCP Internal Medicine; Visit Provider Urology | DX: N81.10 Cystocele, unspecified (principal); N81.6 Rectocele; N76.0 Acute vaginitis; N81.3 Complete uterovaginal prolapse; K59.00 Constipation, unspecified | CPT/HCPCS: 81003; 99212 ==